=== PATIENT | female | born 1990 | race Caucasian/White ===

== ENCOUNTER 2019-11-24 13:35 | Outpatient (RCR) | payer MEDICAID, SELFPAY | END 2020-02-22 23:59 | disposition home or self-care (01) | LOC: ANHBWCAUD 13:35 | DX: Z46.1 Encounter for fitting and adjustment of hearing aid (principal) | CPT/HCPCS: 99199 ==

== ENCOUNTER 2019-12-23 10:35 | Outpatient (CLI) | payer MEDICARE, MEDICAID, SELFPAY | END 2019-12-23 10:36 | disposition home or self-care (01) | DX: Z13.5 Encounter for screening for eye and ear disorders (principal); H91.93 Unspecified hearing loss, bilateral | CPT/HCPCS: 92557; 92567 ==

== ENCOUNTER 2020-04-11 10:18 | Outpatient (RCR) | payer MEDICAID, SELFPAY | END 2020-04-11 23:59 | disposition home or self-care (01) | LOC: ANHAUDIO 10:18 | DX: Z46.1 Encounter for fitting and adjustment of hearing aid (principal) | CPT/HCPCS: V5160; V5261; V5264 ==

== ENCOUNTER 2021-07-26 08:52 | Outpatient (CLI) | payer MEDICAID, SELFPAY | END 2021-07-26 08:53 | disposition home or self-care (01) | LOC: ANHBWCAUD 08:54 | PROVIDERS: Visit Provider Family Medicine | DX: H90.3 Sensorineural hearing loss, bilateral (principal) | CPT/HCPCS: 92557; 92567 ==

== ENCOUNTER 2022-08-01 09:05 | Outpatient (CLI) | payer MEDICARE, MEDICAID, SELFPAY | END 2022-08-01 09:06 | disposition home or self-care (01) | LOC: ANHBWCAUD 09:06 | PROVIDERS: PCP Family Medicine; Visit Provider Family Medicine | DX: H91.93 Unspecified hearing loss, bilateral (principal) | CPT/HCPCS: 92557; 92567 ==

== ENCOUNTER 2023-09-16 09:21 | Outpatient (CLI) | payer MEDICARE, MEDICAID, SELFPAY | END 2023-09-16 09:22 | disposition home or self-care (01) | LOC: ANHBWCAUD 09:21 | PROVIDERS: PCP Family Medicine; Visit Provider Family Medicine | DX: H90.3 Sensorineural hearing loss, bilateral (principal) | CPT/HCPCS: 92557; 92567 ==

== ENCOUNTER 2024-12-28 08:55 | Outpatient (CLI) | payer MEDICARE, MEDICAID, SELFPAY ==
--- OUTSIDE RECORDS SUMMARY | 2024-12-28 09:29 | XMS_ITS | Encounter Summary ---
Author Organization [facility] HealthCare Address [address] [place] [address] Phone Care Team Providers Care Cat Breeder Name Role Phone Dorie Thomas MD Primary Care Provider [phone] Encounter Details Date Type Department Care Team (Late st Contact Info) Description 11/27/2022 Lab Requisition [facility] Laboratory Services 1 [place] [address] Cheko Simental MD [address] [place] [address] [facility] [address] [place] [address] Encounter for screening for COVID-19 Social History Tobacco Use Types Packs/Day Years Used Date Smoking Tobacco: Never Smokeless Tobacco: Never Comments No Sex and Gender Information Value Date Recorded Sex Assigned at Not on file Legal Sex Female 7:58 PM CDT Gender Identity Not on file Sexual Orientation Not on file documented as of this encounter Plan of Treatment Not on file documented as of this encounter Procedures Procedure Name Priority Date/Time Associated Diagnosis Comments SARS-COV-2 BY MOLECULAR Routine 11/27/2022 8:40 AM SHEET ROCK NAILER Encounter for screening for COVID-19 documented in this encounter Results * SARS-COV-2 BY MOLECULAR (11/27/2022 8:40 AM SHEET ROCK NAILER) SARSCOV2 NOT DETECTED (Referen ce Range for this test is Not Detected ) [facility] THERMOFISHER FAST DX 11/27/2022 5:12 PM SHEET ROCK NAILER [facility] Comment:This test was perfor med by a RT-PCR method. Other Non-Phlebotomy Collection / Unknown 11/27/2022 8:40 AM SHEET ROCK NAILER 11/27/2022 10:07 AM SHEET ROCK NAILER Narrative [facility] - 11/27/2022 5:12 PM SHEET ROCK NAILER Authorized Fact Sheets about this test for providers and patients are available at: https://www.fda.gov/medical-devices/hfkzxqmfl-opegedjpbb-rsxbzfj-devices/emergen cy-us e-authorizations us Cheko Simental MD MICROBIOLOGY - GENERAL ORDERAB LES Final Result [facility] [address] [place] [address], documented in this encounter Visit Diagnoses Diagnosis Encounter for screening for COVID-19 documented in this encounter Additional Health Concerns Infection Onset Date Last Indicated Resolved Time COVID - 19 10/29/2022 01/14/2023 01/24/2023 12:1 6 AM CDT documented as of this encounter Care Teams Cat Breeder Relationship Specialty Start Date End Date Dorie Thomas MD PCP - General Family Medicine 01/09/16 01/20/24 documented as of this encounter
--- OUTSIDE RECORDS SUMMARY | 2024-12-28 09:29 | XMS_ITS | Encounter Summary ---
Author Organization [facility] HealthCare Address [address] [place] [address] Phone Care Team Providers Care Loan Originator Name Role Phone Dorie Thomas MD Primary Care Provider Encounter Details Date Type Department Care Team (Late st Contact Info) Description 12/17/2022 Lab Requisition [facility] Laboratory Services 1 [place] [address] Cheko Simental MD [address] [place] [address] [facility] [address] [place] [address] Encounter for screening for COVID-19 [...] Associated Diagnosis Comments SARS-COV-2 BY MOLECULAR Routine 12/17/2022 12:38 PM CLAY STRUCTURE BUILDER AND SERVICER Encounter for screening for COVID-19 documented in this encounter Results * SARS-COV-2 BY MOLECULAR (12/17/2022 12:38 PM CLAY STRUCTURE BUILDER AND SERVICER) SARSCOV2 NOT DETECTED (Referen ce Range for this test is Not Detected ) [facility] FA[facility] 12/18/2022 12:58 PM CLAY STRUCTURE BUILDER AND SERVICER [facility] Comment:This test was perfor med by a RT-PCR method. Other Non-Phlebotomy Collection / Unknown 12/17/2022 12:38 PM CLAY STRUCTURE BUILDER AND SERVICER 12/17/2022 1:47 PM CLAY STRUCTURE BUILDER AND SERVICER Narrative [facility] - 12/18/2022 12:58 PM CLAY STRUCTURE BUILDER AND SERVICER Authorized Fact Sheets about this test for providers and patients are available at: https://www.fda.gov/medical-devices/snmiwpnrw-kuxyledaay-juuffgs-devices/emergen cy-us e-authorizations us Cheko Simental MD MICROBIOLOGY - GENERAL ORDERAB LES Final Result [facility] [address] [place] [address], documented in this encounter Visit Diagnoses Diagnosis Encounter for screening for COVID-19 documented in this encounter Additional Health Concerns Infection Onset Date Last Indicated Resolved Time COVID - 19 10/29/2022 01/14/2023 01/24/2023 12:1 6 AM CDT documented as of this encounter Care Teams Loan Originator Relationship Specialty Start Date End Date Dorie Thomas MD PCP - General Family Medicine 01/09/16 01/20/24 documented as of this encounter
--- OUTSIDE RECORDS SUMMARY | 2024-12-28 09:29 | XMS_ITS | Encounter Summary ---
Author Organization [facility] HealthCare Address [address] [place] [address] Phone Care Team Providers Care Bus Matron Name Role Phone Dorie Thomas MD Primary Care Provider Encounter Details Date Type Department Care Team (Late st Contact Info) Description 11/19/2022 Lab Requisition [facility] Laboratory Services 1 [place] [address] Cheko Simental MD [address] [place] [address] [facility] [address] [place] [address] Encounter for screening for COVID-19 [...] Associated Diagnosis Comments SARS-COV-2 BY MOLECULAR Routine 11/19/2022 8:23 AM CODING COMPLIANCE AUDITOR Encounter for screening for COVID-19 documented in this encounter Results * SARS-COV-2 BY MOLECULAR (11/19/2022 8:23 AM CODING COMPLIANCE AUDITOR) SARSCOV2 NOT DETECTED (Referen ce Range for this test is Not Detected ) [facility] THERMOFISHER FAST DX 11/19/2022 8:36 PM CODING COMPLIANCE AUDITOR [facility] Comment:This test was perfor med by a RT-PCR method. Other Non-Phlebotomy Collection / Unknown 11/19/2022 8:23 AM CODING COMPLIANCE AUDITOR 11/19/2022 9:53 AM CODING COMPLIANCE AUDITOR Narrative [facility] - 11/19/2022 8:36 PM CODING COMPLIANCE AUDITOR Authorized Fact Sheets about this test for providers and patients are available at: https://www.fda.gov/medical-devices/pibgmyird-akffszqwjt-dbtlher-devices/emergen cy-us e-authorizations us Cheko Simental MD MICROBIOLOGY - GENERAL ORDERAB LES Final Result [facility] [address] [place] [address], documented in this encounter Visit Diagnoses Diagnosis Encounter for screening for COVID-19 documented in this encounter Additional Health Concerns Infection Onset Date Last Indicated Resolved Time COVID - 19 10/29/2022 01/14/2023 01/24/2023 12:1 6 AM CDT documented as of this encounter Care Teams Bus Matron Relationship Specialty Start Date End Date Dorie Thomas MD PCP - General Family Medicine 01/09/16 01/20/24 documented as of this encounter
--- OUTSIDE RECORDS SUMMARY | 2024-12-28 09:29 | XMS_ITS | Encounter Summary ---
Author Organization [facility] HealthCare Address [address] [place] [address] Phone Care Team Providers Care Plan Consultant Name Role Phone Dorie Thomas MD Primary Care Provider Encounter Details Date Type Department Care Team (Late st Contact Info) Description 12/24/2022 Lab Requisition [facility] Laboratory Services [address] [place] [address] Cheko Simental MD [address] [place] [address] [facility] [address] [place] [address] Encounter for screening for COVID-19 [...] Associated Diagnosis Comments SARS-COV-2 BY MOLECULAR Routine 12/24/2022 8:35 AM SOLAR ENERGY INSTALLATION MANAGER Encounter for screening for COVID-19 documented in this encounter Results * SARS-COV-2 BY MOLECULAR (12/24/2022 8:35 AM SOLAR ENERGY INSTALLATION MANAGER) SARSCOV2 NOT DETECTED (Referen ce Range for this test is Not Detected ) [facility] THERMOFISHER FAST DX 12/25/2022 8:54 AM SOLAR ENERGY INSTALLATION MANAGER [facility] [place] Comment:This test was perfor med by a RT-PCR method. Other Non-Phlebotomy Collection / Unknown 12/24/2022 8:35 AM SOLAR ENERGY INSTALLATION MANAGER 12/24/2022 10:34 AM SOLAR ENERGY INSTALLATION MANAGER Narrative [facility] [place] - 12/25/2022 8:54 AM SOLAR ENERGY INSTALLATION MANAGER Authorized Fact Sheets about this test for providers and patients are available at: https://www.fda.gov/medical-devices/qvogvzfuj-bfrppsdjbx-gyxxhwu-devices/emergen cy-us e-authorizations us Cheko Simental MD MICROBIOLOGY - GENERAL ORDERAB LES Final Result [facility] [address] [place] [address], documented in this encounter Visit Diagnoses Diagnosis Encounter for screening for COVID-19 documented in this encounter Additional Health Concerns Infection Onset Date Last Indicated Resolved Time COVID - 19 10/29/2022 01/14/2023 01/24/2023 12:1 6 AM CDT documented as of this encounter Care Teams Plan Consultant Relationship Specialty Start Date End Date Dorie Thomas MD PCP - General Family Medicine 01/09/16 01/20/24 documented as of this encounter
--- OUTSIDE RECORDS SUMMARY | 2024-12-28 09:29 | XMS_ITS | Encounter Summary ---
Author Organization [facility] HealthCare Address [address] [place] [address] Phone Care Team Providers Care Call Taker Name Role Phone Dorie Thomas MD Primary Care Provider Encounter Details Date Type Department Care Team (Late st Contact Info) Description 12/10/2022 Lab Requisition [facility] Laboratory Services 1 [place] [address] Cheko Simental MD [address] [place] [address] [facility] [address] [place] [address] Encounter for screening for COVID-19 [...] Associated Diagnosis Comments SARS-COV-2 BY MOLECULAR Routine 12/10/2022 8:31 AM REHABILITATION SERVICES AIDE Encounter for screening for COVID-19 documented in this encounter Results * SARS-COV-2 BY MOLECULAR (12/10/2022 8:31 AM REHABILITATION SERVICES AIDE) SARSCOV2 NOT DETECTED (Referen ce Range for this test is Not Detected ) [facility] THERMOFISHER FAST DX 12/10/2022 11:05 PM REHABILITATION SERVICES AIDE [facility] Comment:This test was perfor med by a RT-PCR method. Other Non-Phlebotomy Collection / Unknown 12/10/2022 8:31 AM REHABILITATION SERVICES AIDE 12/10/2022 10:19 AM REHABILITATION SERVICES AIDE Narrative [facility] - 12/10/2022 11:05 PM REHABILITATION SERVICES AIDE Authorized Fact Sheets about this test for providers and patients are available at: https://www.fda.gov/medical-devices/bgswentux-hgonfpuflv-ungbfkl-devices/emergen cy-us e-authorizations us Cheko Simental MD MICROBIOLOGY - GENERAL ORDERAB LES Final Result [facility] [address] [place] [address], documented in this encounter Visit Diagnoses Diagnosis Encounter for screening for COVID-19 documented in this encounter Additional Health Concerns Infection Onset Date Last Indicated Resolved Time COVID - 19 10/29/2022 01/14/2023 01/24/2023 12:1 6 AM CDT documented as of this encounter Care Teams Call Taker Relationship Specialty Start Date End Date Dorie Thomas MD PCP - General Family Medicine 01/09/16 01/20/24 documented as of this encounter
--- OUTSIDE RECORDS SUMMARY | 2024-12-28 09:29 | XMS_ITS | Encounter Summary ---
Author Organization [facility] HealthCare Address [address] [place] [address] Phone Care Team Providers Care Structural Manager Name Role Phone Dorie Thomas MD Primary Care Provider Encounter Details Date Type Department Care Team (Late st Contact Info) Description 12/03/2022 Lab Requisition [facility] Laboratory Services 1 [place] [address] Cheko Simental MD [address] [place] [address] [facility] [address] [place] [address] Encounter for screening for COVID-19 [...] Associated Diagnosis Comments SARS-COV-2 BY MOLECULAR Routine 12/03/2022 8:24 AM PERFORATING MACHINE OPERATOR Encounter for screening for COVID-19 documented in this encounter Results * SARS-COV-2 BY MOLECULAR (12/03/2022 8:24 AM PERFORATING MACHINE OPERATOR) SARSCOV2 NOT DETECTED (Referen ce Range for this test is Not Detected ) [facility] THERMOFISHER FAST DX 12/03/2022 9:47 PM PERFORATING MACHINE OPERATOR [facility] Comment:This test was perfor med by a RT-PCR method. Other Non-Phlebotomy Collection / Unknown 12/03/2022 8:24 AM PERFORATING MACHINE OPERATOR 12/03/2022 9:51 AM PERFORATING MACHINE OPERATOR Narrative [facility] - 12/03/2022 9:47 PM PERFORATING MACHINE OPERATOR Authorized Fact Sheets about this test for providers and patients are available at: https://www.fda.gov/medical-devices/oayshhekl-ojoohiydhe-atlzngl-devices/emergen cy-us e-authorizations us Cheko Simental MD MICROBIOLOGY - GENERAL ORDERAB LES Final Result [facility] [address] [place] [address], documented in this encounter Visit Diagnoses Diagnosis Encounter for screening for COVID-19 documented in this encounter Additional Health Concerns Infection Onset Date Last Indicated Resolved Time COVID - 19 10/29/2022 01/14/2023 01/24/2023 12:1 6 AM CDT documented as of this encounter Care Teams Structural Manager Relationship Specialty Start Date End Date Dorie Thomas MD PCP - General Family Medicine 01/09/16 01/20/24 documented as of this encounter
--- OUTSIDE RECORDS SUMMARY | 2024-12-28 09:30 | XMS_ITS | Encounter Summary ---
Author Organization [facility] HealthCare Address [address] [place] [address] Phone Care Team Providers Care Manufacturing Engineer Name Role Phone Dorie Thomas MD Primary Care Provider Encounter Details Date Type Department Care Team (Late st Contact Info) Description 04/30/2022 Lab Requisition [facility] Laboratory Services 1 [place] [address] Cheko Simental MD [address] [place] [address] [facility] [address] [place] [address] Encounter for screening for COVID-19 [...] Associated Diagnosis Comments SARS-COV-2 BY MOLECULAR Routine 07/01/2022 8:30 AM CDT Encounter for screening for COVID-19 documented in this encounter Results * SARS-COV-2 BY MOLECULAR (07/01/2022 8:30 AM CDT) SARSCOV2 NOT DETECTED (Referen ce Range for this test is Not Detected ) [facility] THERMOFISHER FAST DX 04/30/2022 11:45 PM CDT [facility] Comment:This test was perfor med by a RT-PCR method. Other Non-Phlebotomy Collection / Unknown 07/01/2022 8:30 AM CDT 04/30/2022 9:21 AM CDT Narrative [facility] - 04/30/2022 11:45 PM CDT Authorized Fact Sheets about this test for providers and patients are available at: https://www.fda.gov/medical-devices/zzqryjani-ogwiqhqxll-iwqhpnb-devices/emergen cy-us e-authorizations us Cheko Simental MD MICROBIOLOGY - GENERAL ORDERAB LES Final Result [facility] [address] [place] [address], documented in this encounter Visit Diagnoses Diagnosis Encounter for screening for COVID-19 documented in this encounter Additional Health Concerns Infection Onset Date Last Indicated Resolved Time COVID - 19 07/24/2021 09/03/2022 09/13/2022 12:1 7 AM DIRECTOR OF RETAIL OPERATIONS COVID - 19 10/29/2022 01/14/2023 01/24/2023 12:1 6 AM CDT documented as of this encounter Care Teams Manufacturing Engineer Relationship Specialty Start Date End Date Dorie Thomas MD PCP - General Family Medicine 01/09/16 01/20/24 documented as of this encounter
--- OUTSIDE RECORDS SUMMARY | 2024-12-28 09:30 | XMS_ITS | Encounter Summary ---
Author Organization [facility] HealthCare Address [address] [place] [address] Phone Care Team Providers Care Real Time Analyst Name Role Phone Dorie Thomas MD Primary Care Provider [phone] Encounter Details Date Type Department Care Team (Late st Contact Info) Description 10/29/2022 Lab Requisition [facility] Laboratory Services 1 [place] [address] Cheko Simental MD [address] [place] [address] [facility] [address] [place] [address] Encounter for screening for COVID-19 [...] Associated Diagnosis Comments SARS-COV-2 BY MOLECULAR Routine 10/29/2022 8:24 AM STUDY SPECIALIST Encounter for screening for COVID-19 documented in this encounter Results * SARS-COV-2 BY MOLECULAR (10/29/2022 8:24 AM STUDY SPECIALIST) SARSCOV2 NOT DETECTED (Referen ce Range for this test is Not Detected ) [facility] THERMOFISHER FAST DX 10/30/2022 12:02 AM STUDY SPECIALIST [facility] Comment:This test was perfor med by a RT-PCR method. Other Non-Phlebotomy Collection / Unknown 10/29/2022 8:24 AM STUDY SPECIALIST 10/29/2022 2:30 PM STUDY SPECIALIST Narrative [facility] - 10/30/2022 12:02 AM STUDY SPECIALIST Authorized Fact Sheets about this test for providers and patients are available at: https://www.fda.gov/medical-devices/mmskiljjb-qnxzbmklcr-qvngcvj-devices/emergen cy-us e-authorizations us Cheko Simental MD MICROBIOLOGY - GENERAL ORDERAB LES Final Result [facility] [address] [place] [address], documented in this encounter Visit Diagnoses Diagnosis Encounter for screening for COVID-19 documented in this encounter Additional Health Concerns Infection Onset Date Last Indicated Resolved Time COVID - 19 10/29/2022 01/14/2023 01/24/2023 12:1 6 AM CDT documented as of this encounter Care Teams Real Time Analyst Relationship Specialty Start Date End Date Dorie Thomas MD PCP - General Family Medicine 01/09/16 01/20/24 documented as of this encounter
--- OUTSIDE RECORDS SUMMARY | 2024-12-28 09:30 | XMS_ITS | Encounter Summary ---
Author Organization [facility] HealthCare Address [address] [place] [address] Phone Care Team Providers Care Therapeutic Strategy Lead Name Role Phone Dorie Thomas MD Primary Care Provider Encounter Details Date Type Department Care Team (Late st Contact Info) Description 07/02/2022 Lab Requisition [facility] Laboratory Services 1 [place] [address] Cheko Simental MD [address] [place] [address] [facility] [address] [place] [address] Encounter for screening for COVID-19 [...] Associated Diagnosis Comments SARS-COV-2 BY MOLECULAR Routine 07/02/2022 8:29 AM CDT Encounter for screening for COVID-19 documented in this encounter Results * SARS-COV-2 BY MOLECULAR (07/02/2022 8:29 AM CDT) SARSCOV2 NOT DETECTED (Referen ce Range for this test is Not Detected ) [facility] THERMOFISHER FAST DX 07/03/2022 6:15 AM CDT [facility] Comment:This test was perfor med by a RT-PCR method. Other Non-Phlebotomy Collection / Unknown 07/02/2022 8:29 AM CDT 07/02/2022 11:44 AM CDT Narrative [facility] - 07/03/2022 6:15 AM CDT Authorized Fact Sheets about this test for providers and patients are available at: https://www.fda.gov/medical-devices/avtlcllaf-vrzkvvrfsr-iiquajn-devices/emergen cy-us e-authorizations us Cheko Simental MD MICROBIOLOGY - GENERAL ORDERAB LES Final Result [facility] [address] [place] [address], documented in this encounter Visit Diagnoses Diagnosis Encounter for screening for COVID-19 documented in this encounter Additional Health Concerns Infection Onset Date Last Indicated Resolved Time COVID - 19 07/24/2021 09/03/2022 09/13/2022 12:1 7 AM ART CLASS MODEL COVID - 19 10/29/2022 01/14/2023 01/24/2023 12:1 6 AM CDT documented as of this encounter Care Teams Therapeutic Strategy Lead Relationship Specialty Start Date End Date Dorie Thomas MD PCP - General Family Medicine 01/09/16 01/20/24 documented as of this encounter
--- OUTSIDE RECORDS SUMMARY | 2024-12-28 09:30 | XMS_ITS | Encounter Summary ---
Author Organization [facility] HealthCare Address [address] [place] [address] Phone Care Team Providers Care Program Attendant Name Role Phone Dorie Thomas MD Primary Care Provider [phone] Encounter Details Date Type Department Care Team (Late st Contact Info) Description 07/31/2021 Lab Requisition [facility] Laboratory Services 1 [place] [address] Cheko Simental MD [address] [place] [address] [facility] [address] [place] [address] Encounter for screening for COVID-19 [...] Associated Diagnosis Comments SARS-COV-2 BY MOLECULAR Routine 07/31/2021 8:38 AM CDT Encounter for screening for COVID-19 documented in this encounter Results * SARS-COV-2 BY MOLECULAR (07/31/2021 8:38 AM CDT) SARSCOV2 NOT DETECTED (Referen ce Range for this test is Not Detected ) [facility] THERMOFISHER FAST DX 08/01/2021 6:36 AM CDT [facility] Comment:This test was perfor med by a RT-PCR method. Other Non-Phlebotomy Collection / Unknown 07/31/2021 8:38 AM CDT 07/31/2021 10:26 AM CDT Narrative [facility] - 08/01/2021 6:36 AM CDT Authorized Fact Sheets about this test for providers and patients are available at: https://www.fda.gov/medical-devices/eyjmuvqgx-jkolfkblao-ktuaqcc-devices/emergen cy-us e-authorizations us Cheko Simental MD MICROBIOLOGY - GENERAL ORDERAB LES Final Result [facility] [address] [place] [id number], documented in this encounter Visit Diagnoses Diagnosis Encounter for screening for COVID-19 documented in this encounter Additional Health Concerns Infection Onset Date Last Indicated Resolved Time COVID - 19 07/24/2021 09/03/2022 09/13/2022 12:1 7 AM CUFF MATCHER COVID - 19 10/29/2022 01/14/2023 01/24/2023 12:1 6 AM CDT documented as of this encounter Care Teams Program Attendant Relationship Specialty Start Date End Date Dorie Thomas MD PCP - General Family Medicine 01/09/16 01/20/24 documented as of this encounter
--- OUTSIDE RECORDS SUMMARY | 2024-12-28 09:30 | XMS_ITS | Encounter Summary ---
Author Organization [facility] HealthCare Address [address] [place] [address] Phone Care Team Providers Care Sales Strategy Manager Name Role Phone Dorie Thomas MD Primary Care Provider [phone] Encounter Details Date Type Department Care Team (Late st Contact Info) Description 04/09/2022 Lab Requisition [facility] Laboratory Services 1 [place] [address] Cheko Simental MD [address] [place] [address] [facility] [address] [place] [address] Encounter for screening for COVID-19 [...] Associated Diagnosis Comments SARS-COV-2 BY MOLECULAR Routine 04/09/2022 9:06 AM CDT Encounter for screening for COVID-19 documented in this encounter Results * SARS-COV-2 BY MOLECULAR (04/09/2022 9:06 AM CDT) SARSCOV2 NOT DETECTED (Referen ce Range for this test is Not Detected ) [facility] THERMOFISHER FAST DX 04/10/2022 6:49 AM CDT [facility] Comment:This test was perfor med by a RT-PCR method. Other Non-Phlebotomy Collection / Unknown 04/09/2022 9:06 AM CDT 04/09/2022 12:45 PM CDT Narrative [facility] - 04/10/2022 6:49 AM CDT Authorized Fact Sheets about this test for providers and patients are available at: https://www.fda.gov/medical-devices/nfergzull-hbosjemlwp-ldwkewi-devices/emergen cy-us e-authorizations us Cheko Simental MD MICROBIOLOGY - GENERAL ORDERAB LES Final Result [facility] [address] [place] [address], documented in this encounter Visit Diagnoses Diagnosis Encounter for screening for COVID-19 documented in this encounter Additional Health Concerns Infection Onset Date Last Indicated Resolved Time COVID - 19 07/24/2021 09/03/2022 09/13/2022 12:1 7 AM STRUCTURAL METAL WORKER COVID - 19 10/29/2022 01/14/2023 01/24/2023 12:1 6 AM CDT documented as of this encounter Care Teams Sales Strategy Manager Relationship Specialty Start Date End Date Dorie Thomas MD PCP - General Family Medicine 01/09/16 01/20/24 documented as of this encounter
--- OUTSIDE RECORDS SUMMARY | 2024-12-28 09:30 | XMS_ITS | Encounter Summary ---
Author Organization [facility] Address [address] [place] [address] Phone Care Team Providers Care Manager Nc Name Role Phone Dorie Thomas MD Primary Care Provider [phone] Encounter Details Date Type Department Care Team (Late st Contact Info) Description 06/18/2022 Lab Requisition [facility] Services [address] [place] [address] Cheko Simental MD [address] [place] [address] [facility] [address] [place] [address] Encounter for screening for COVID-19 [...] Associated Diagnosis Comments SARS-COV-2 BY MOLECULAR Routine 06/18/2022 8:38 AM CDT Encounter for screening for COVID-19 documented in this encounter Results * SARS-COV-2 BY MOLECULAR (06/18/2022 8:38 AM CDT) SARSCOV2 NOT DETECTED (Referen ce Range for this test is Not Detected ) [facility] THERMOFISHER FAST DX 06/19/2022 8:15 AM CDT [facility] Comment:This test was perfor med by a RT-PCR method. Other Non-Phlebotomy Collection / Unknown 06/18/2022 8:38 AM CDT 06/18/2022 12:45 PM CDT Narrative [facility] - 06/19/2022 8:15 AM CDT Authorized Fact Sheets about this test for providers and patients are available at: https://www.fda.gov/medical-devices/kfcwvelul-tfjaipihwr-uatloey-devices/emergen cy-us e-authorizations us Cheko Simental MD MICROBIOLOGY - GENERAL ORDERAB LES Final Result [facility] [address] [place] [address], documented in this encounter Visit Diagnoses Diagnosis Encounter for screening for COVID-19 documented in this encounter Additional Health Concerns Infection Onset Date Last Indicated Resolved Time COVID - 19 07/24/2021 09/03/2022 09/13/2022 12:1 7 AM TREATING AND PUMPING SUPERVISOR COVID - 19 10/29/2022 01/14/2023 01/24/2023 12:1 6 AM CDT documented as of this encounter Care Teams Manager Nc Relationship Specialty Start Date End Date Dorie Thomas MD PCP - General Family Medicine 01/09/16 01/20/24 documented as of this encounter
--- OUTSIDE RECORDS SUMMARY | 2024-12-28 09:30 | XMS_ITS | Encounter Summary ---
Author Organization [facility] Address [address] [place] [address] Phone Care Team Providers Care Manager Of Business Operations Name Role Phone Dorie Thomas MD Primary Care Provider [phone] Encounter Details Date Type Department Care Team (Late st Contact Info) Description 05/21/2022 Lab Requisition [facility] Laboratory Services 1 [place] [address] Cheko Simental MD [address] [place] [address] [facility] [address] [place] [address] Encounter for screening for COVID-19 [...] Associated Diagnosis Comments SARS-COV-2 BY MOLECULAR Routine 05/21/2022 8:27 AM CDT Encounter for screening for COVID-19 documented in this encounter Results * SARS-COV-2 BY MOLECULAR (05/21/2022 8:27 AM CDT) SARSCOV2 NOT DETECTED (Referen ce Range for this test is Not Detected ) [facility] THERMOFISHER FAST DX 05/22/2022 8:14 PM CDT [facility] Comment:This test was perfor med by a RT-PCR method. Other Non-Phlebotomy Collection / Unknown 05/21/2022 8:27 AM CDT 05/21/2022 1:44 PM CDT Narrative [facility] - 05/22/2022 8:14 PM CDT Authorized Fact Sheets about this test for providers and patients are available at: https://www.fda.gov/medical-devices/btglpqtkj-orsljvnsqx-hbawcer-devices/emergen cy-us e-authorizations us Cheko Simental MD MICROBIOLOGY - GENERAL ORDERAB LES Final Result [facility] [address] [place] [address], documented in this encounter Visit Diagnoses Diagnosis Encounter for screening for COVID-19 documented in this encounter Additional Health Concerns Infection Onset Date Last Indicated Resolved Time COVID - 19 07/24/2021 09/03/2022 09/13/2022 12:1 7 AM 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
--- OUTSIDE RECORDS SUMMARY | 2024-12-28 09:30 | XMS_ITS | Encounter Summary ---
Author Organization [facility] Address [address] [place] [address] Phone Care Team Providers Care Flame Cutting Machine Operator Name Role Phone Dorie Thomas MD Primary Care Provider Encounter Details Date Type Department Care Team (Late st Contact Info) Description 03/26/2022 Lab Requisition [facility] Laboratory Services 1 [place] [address] Cheko Simental MD [address] [place] [address] [facility] [address] [place] [address] Encounter for screening for COVID-19 [...] Associated Diagnosis Comments SARS-COV-2 BY MOLECULAR Routine 03/26/2022 8:57 AM CDT Encounter for screening for COVID-19 documented in this encounter Results * SARS-COV-2 BY MOLECULAR (03/26/2022 8:57 AM CDT) SARSCOV2 NOT DETECTED (Referen ce Range for this test is Not Detected ) [facility] THERMOFISHER FAST DX 03/27/2022 12:49 AM CDT [facility] Comment:This test was perfor med by a RT-PCR method. Other Non-Phlebotomy Collection / Unknown 03/26/2022 8:57 AM CDT 03/26/2022 11:13 AM CDT Narrative [facility] - 03/27/2022 12:49 AM CDT Authorized Fact Sheets about this test for providers and patients are available at: https://www.fda.gov/medical-devices/etcftcvqe-kmhomdegfs-vjkxhvq-devices/emergen cy-us e-authorizations us Cheko Simental MD MICROBIOLOGY - GENERAL ORDERAB LES Final Result [facility] [address] [place] [address], documented in this encounter Visit Diagnoses Diagnosis Encounter for screening for COVID-19 documented in this encounter Additional Health Concerns Infection Onset Date Last Indicated Resolved Time COVID - 19 07/24/2021 09/03/2022 09/13/2022 12:1 7 AM FLOOR POLISHER COVID - 19 10/29/2022 01/14/2023 01/24/2023 12:1 6 AM CDT documented as of this encounter Care Teams Flame Cutting Machine Operator Relationship Specialty Start Date End Date Dorie Thomas MD PCP - General Family Medicine 01/09/16 01/20/24 documented as of this encounter
--- OUTSIDE RECORDS SUMMARY | 2024-12-28 09:30 | XMS_ITS | Encounter Summary ---
Author Organization [facility] Address [address] [place] [address] Phone Care Team Providers Care Brakeshoe Repairer Name Role Phone Dorie Thomas MD Primary Care Provider Encounter Details Date Type Department Care Team (Late st Contact Info) Description 09/25/2021 Lab Requisition [facility] Laboratory Services 1 [place] [address] Cheko Simental MD [address] [place] [address] [facility] [address] [place] [address] Social History Tobacco Use Types Packs/Day Years [...] Associated Diagnosis Comments SARS-COV-2 BY MOLECULAR Routine 09/25/2021 8:20 AM MECHANICAL SYSTEMS DESIGNER documented in this encounter Results * SARS-COV-2 BY MOLECULAR (09/25/2021 8:20 AM MECHANICAL SYSTEMS DESIGNER) SARSCOV2 NOT DETECTED (Referen ce Range for this test is Not Detected ) [facility] THERMOFISHER FAST DX 09/26/2021 9:30 PM MECHANICAL SYSTEMS DESIGNER [facility] Comment:This test was perfor med by a RT-PCR method. Other Non-Phlebotomy Collection / Unknown 09/25/2021 8:20 AM MECHANICAL SYSTEMS DESIGNER 09/25/2021 10:47 AM MECHANICAL SYSTEMS DESIGNER Narrative [facility] - 09/26/2021 9:30 PM MECHANICAL SYSTEMS DESIGNER Authorized Fact Sheets about this test for providers and patients are available at: https://www.fda.gov/medical-devices/rewxyabxh-qsqxtcppkj-lnvjulh-devices/emergen cy-us e-authorizations us Cheko Simental MD MICROBIOLOGY - GENERAL ORDERAB LES Final Result [facility] [address] [facility] [place] [id number], documented in this encounter Visit Diagnoses Not on filedocumented in this encounter Additional Health Concerns Infection Onset Date Last Indicated Resolved Time COVID - 19 07/24/2021 09/03/2022 09/13/2022 12:1 7 AM MECHANICAL SYSTEMS DESIGNER COVID - 19 10/29/2022 01/14/2023 01/24/2023 12:1 6 AM CDT documented as of this encounter Care Teams Brakeshoe Repairer Relationship Specialty Start Date End Date Dorie Thomas MD PCP - General Family Medicine 01/09/16 01/20/24 documented as of this encounter
--- OUTSIDE RECORDS SUMMARY | 2024-12-28 09:30 | XMS_ITS | Encounter Summary ---
Author Organization [facility] Address [address] [place] [address] Phone Care Team Providers Care Diabetes Educator Name Role Phone Dorie Thomas MD Primary Care Provider Encounter Details Date Type Department Care Team (Late st Contact Info) Description 07/23/2022 Lab Requisition [facility] Laboratory Services 1 [place] [address] Cheko Simental MD [address] [place] [address] [facility] [address] [place] [address] Encounter for screening for COVID-19 [...] Associated Diagnosis Comments SARS-COV-2 BY MOLECULAR Routine 07/23/2022 8:22 AM CDT Encounter for screening for COVID-19 documented in this encounter Results * SARS-COV-2 BY MOLECULAR (07/23/2022 8:22 AM CDT) SARSCOV2 NOT DETECTED (Referen ce Range for this test is Not Detected ) [facility] THERMOFISHER FAST DX 07/24/2022 10:23 AM CDT [facility] Comment:This test was perfor med by a RT-PCR method. Other Non-Phlebotomy Collection / Unknown 07/23/2022 8:22 AM CDT 07/23/2022 11:04 AM CDT Narrative [facility] - 07/24/2022 10:23 AM CDT Authorized Fact Sheets about this test for providers and patients are available at: https://www.fda.gov/medical-devices/mlimmvivr-ytnjxivbic-auqavmd-devices/emergen cy-us e-authorizations us Cheko Simental MD MICROBIOLOGY - GENERAL ORDERAB LES Final Result [facility] [address] [place] [address], documented in this encounter Visit Diagnoses Diagnosis Encounter for screening for COVID-19 documented in this encounter Additional Health Concerns Infection Onset Date Last Indicated Resolved Time COVID - 19 07/24/2021 09/03/2022 09/13/2022 12:1 7 AM INCOME TAX ADJUSTER COVID - 19 10/29/2022 01/14/2023 01/24/2023 12:1 6 AM CDT documented as of this encounter Care Teams Diabetes Educator Relationship Specialty Start Date End Date Dorie Thomas MD PCP - General Family Medicine 01/09/16 01/20/24 documented as of this encounter
--- OUTSIDE RECORDS SUMMARY | 2024-12-28 09:30 | XMS_ITS | Encounter Summary ---
Author Organization [facility] Address [address] [place] [address] Phone Care Team Providers Care Bath Tester Name Role Phone Dorie Thomas MD Primary Care Provider [phone] Encounter Details Date Type Department Care Team (Late st Contact Info) Description 07/16/2022 Lab Requisition [facility] Laboratory Services 1 [place] [address] Cheko Simental MD [address] [place] [address] [facility] [address] [place] [address] Encounter for screening for COVID-19 [...] Associated Diagnosis Comments SARS-COV-2 BY MOLECULAR Routine 07/16/2022 8:17 AM CDT documented in this encounter Results * SARS-COV-2 BY MOLECULAR (07/16/2022 8:17 AM CDT) SARSCOV2 NOT DETECTED (Referen ce Range for this test is Not Detected ) [facility] THERMOFISHER FAST DX 07/16/2022 10:11 PM CDT [facility] Comment:This test was perfor med by a RT-PCR method. Other Non-Phlebotomy Collection / Unknown 07/16/2022 8:17 AM CDT 07/16/2022 9:43 AM CDT Narrative [facility] - 07/16/2022 10:11 PM CDT Authorized Fact Sheets about this test for providers and patients are available at: https://www.fda.gov/medical-devices/ozdmcjaql-cyfzfytjdl-rzyivnm-devices/emergen cy-us e-authorizations us Cheko Simental MD MICROBIOLOGY - GENERAL ORDERAB LES Final Result Performing Organization Address City/State/[facility] Co de Phone Number [facility] [address] [place] [address], documented in this encounter Visit Diagnoses Diagnosis Encounter for screening for COVID-19 documented in this encounter Additional Health Concerns Infection Onset Date Last Indicated Resolved Time COVID - 19 07/24/2021 09/03/2022 09/13/2022 12:1 7 AM SUPERVISOR WEBBING COVID - 19 10/29/2022 01/14/2023 01/24/2023 12:1 6 AM CDT documented as of this encounter Care Teams Bath Tester Relationship Specialty Start Date End Date Dorie Thomas MD PCP - General Family Medicine 01/09/16 01/20/24 documented as of this encounter
--- OUTSIDE RECORDS SUMMARY | 2024-12-28 09:30 | XMS_ITS | Encounter Summary ---
Author Organization [facility] Address [address] [place] [address] Phone Care Team Providers Care Gill Box Tender Name Role Phone Dorie Thomas MD Primary Care Provider [phone] Encounter Details Date Type Department Care Team (Late st Contact Info) Description 02/05/2022 Lab Requisition [facility] Laboratory Services 1 [place] [address] Cheko Simental MD [address] [place] [address] [facility] [address] [place] [address] Encounter for screening for other viral diseases Social History Tobacco Use Types Packs/Day Years [...] Associated Diagnosis Comments SARS-COV-2 BY MOLECULAR Routine 02/05/2022 9:07 AM CDT documented in this encounter Results * SARS-COV-2 BY MOLECULAR (02/05/2022 9:07 AM CDT) SARSCOV2 NOT DETECTED (Referen ce Range for this test is Not Detected ) [facility] THERMOFISHER FAST DX 02/05/2022 11:[address] [facility] Comment:This test was perfor med by a RT-PCR method. Other No Phlebotomy Charged / Unknown 02/05/2022 9:07 AM CDT 02/05/2022 12:[address] [facility] - 02/05/2022 11:28 PM CDT Authorized Fact Sheets about this test for providers and patients are available at: https://www.fda.gov/medical-devices/lbynaghuy-gqkxgbskxb-svalfmj-devices/emergen cy-us e-authorizations us Cheko Simental MD MICROBIOLOGY - GENERAL ORDERAB LES Final Result Performing Organization Address City/State/[facility] Co de Phone Number [facility] [address] [place] [address], documented in this encounter Visit Diagnoses Diagnosis Encounter for screening for other viral diseases documented in this encounter Additional Health Concerns Infection Onset Date Last Indicated Resolved Time COVID - 19 07/24/2021 09/03/2022 09/13/2022 12:1 7 AM BOATING SAFETY OFFICER COVID - 19 10/29/2022 01/14/2023 01/24/2023 12:1 6 AM CDT documented as of this encounter Care Teams Gill Box Tender Relationship Specialty Start Date End Date Dorie Thomas MD PCP - General Family Medicine 01/09/16 01/20/24 documented as of this encounter
--- OUTSIDE RECORDS SUMMARY | 2024-12-28 09:30 | XMS_ITS | Encounter Summary ---
Author Organization [facility] Address [address] [place] [address] Phone Care Team Providers Care Investigation Manager Name Role Phone Dorie Thomas MD Primary Care Provider [phone] Encounter Details Date Type Department Care Team (Late st Contact Info) Description 11/12/2022 Lab Requisition [facility] Laboratory Services 1 [place] [address] Cheko Simental MD [address] [place] [address] [facility] [address] [place] [address] Encounter for screening for COVID-19 [...] Associated Diagnosis Comments SARS-COV-2 BY MOLECULAR Routine 11/12/2022 12:40 PM MACHINE STONE POLISHER Encounter for screening for COVID-19 documented in this encounter Results * SARS-COV-2 BY MOLECULAR (11/12/2022 12:40 PM MACHINE STONE POLISHER) SARSCOV2 NOT DETECTED (Referen ce Range for this test is Not Detected ) [facility] THERMOFISHER FAST DX 11/12/2022 11:22 PM MACHINE STONE POLISHER [facility] Comment:This test was perfor med by a RT-PCR method. Other Non-Phlebotomy Collection / Unknown 11/12/2022 12:40 PM MACHINE STONE POLISHER 11/12/2022 1:58 PM MACHINE STONE POLISHER Narrative [facility] - 11/12/2022 11:22 PM MACHINE STONE POLISHER Authorized Fact Sheets about this test for providers and patients are available at: https://www.fda.gov/medical-devices/lllsanaaz-lhfvwoggps-bufqagf-devices/emergen cy-us e-authorizations us Cheko Simental MD MICROBIOLOGY - GENERAL ORDERAB LES Final Result [facility] [address] [place] [address], documented in this encounter Visit Diagnoses Diagnosis Encounter for screening for COVID-19 documented in this encounter Additional Health Concerns Infection Onset Date Last Indicated Resolved Time COVID - 19 10/29/2022 01/14/2023 01/24/2023 12:1 6 AM CDT documented as of this encounter Care Teams Investigation Manager Relationship Specialty Start Date End Date Dorie Thomas MD PCP - General Family Medicine 01/09/16 01/20/24 documented as of this encounter
--- OUTSIDE RECORDS SUMMARY | 2024-12-28 09:30 | XMS_ITS | Encounter Summary ---
Author Organization [facility] Address [address] [place] [address] Phone Care Team Providers Care Station Manager Name Role Phone Dorie Thomas MD Primary Care Provider Encounter Details Date Type Department Care Team (Late st Contact Info) Description 04/02/2022 Lab Requisition [facility] Laboratory Services 1 [place] [address] Cheko Simental MD [address] [place] [address] [facility] [address] [place] [address] Encounter for screening for COVID-19 [...] Associated Diagnosis Comments SARS-COV-2 BY MOLECULAR Routine 04/02/2022 9:12 AM CDT Encounter for screening for COVID-19 documented in this encounter Results * SARS-COV-2 BY MOLECULAR (04/02/2022 9:12 AM CDT) SARSCOV2 NOT DETECTED (Referen ce Range for this test is Not Detected ) [facility] THERMOFISHER FAST DX 04/03/2022 8:04 AM CDT [facility] Comment:This test was perfor med by a RT-PCR method. Other Non-Phlebotomy Collection / Unknown 04/02/2022 9:12 AM CDT 04/02/2022 12:06 PM CDT Narrative [facility] - 04/03/2022 8:04 AM CDT Authorized Fact Sheets about this test for providers and patients are available at: https://www.fda.gov/medical-devices/mxthxscye-xcqitsxkck-ltcyrnb-devices/emergen cy-us e-authorizations us Cheko Simental MD MICROBIOLOGY - GENERAL ORDERAB LES Final Result [facility] [address] [place] [address], documented in this encounter Visit Diagnoses Diagnosis Encounter for screening for COVID-19 documented in this encounter Additional Health Concerns Infection Onset Date Last Indicated Resolved Time COVID - 19 07/24/2021 09/03/2022 09/13/2022 12:1 7 AM DEPARTMENT CLINICIAN COVID - 19 10/29/2022 01/14/2023 01/24/2023 12:1 6 AM CDT documented as of this encounter Care Teams Station Manager Relationship Specialty Start Date End Date Dorie Thomas MD PCP - General Family Medicine 01/09/16 01/20/24 documented as of this encounter
--- OUTSIDE RECORDS SUMMARY | 2024-12-28 09:30 | XMS_ITS | Encounter Summary ---
Author Organization [facility] Address [address] [place] [address] Phone Care Team Providers Care Coil Repair Technician Name Role Phone Dorie Thomas MD Primary Care Provider [phone] Encounter Details Date Type Department Care Team (Late st Contact Info) Description 08/28/2021 Lab Requisition [facility] Laboratory Services 1 [place] [address] Cheko Simental MD [address] [place] [address] [facility] [address] [place] [address] Encounter for screening for COVID-19 [...] Associated Diagnosis Comments SARS-COV-2 BY MOLECULAR Routine 08/28/2021 8:41 AM CDT Encounter for screening for COVID-19 documented in this encounter Results * SARS-COV-2 BY MOLECULAR (08/28/2021 8:41 AM CDT) SARSCOV2 NOT DETECTED (Referen ce Range for this test is Not Detected ) [facility] THERMOFISHER FAST DX 08/29/2021 7:12 AM CDT [facility] Comment:This test was perfor med by a RT-PCR method. Other Non-Phlebotomy Collection / Unknown 08/28/2021 8:41 AM CDT 08/28/2021 11:58 AM CDT Narrative [facility] - 08/29/2021 7:12 AM CDT Authorized Fact Sheets about this test for providers and patients are available at: https://www.fda.gov/medical-devices/bsdbfkrch-zjltkpckgy-wobhsug-devices/emergen cy-us e-authorizations us Cheko Simental MD MICROBIOLOGY - GENERAL ORDERAB LES Final Result [facility] [address] [place] [id number], documented in this encounter Visit Diagnoses Diagnosis Encounter for screening for COVID-19 documented in this encounter Additional Health Concerns Infection Onset Date Last Indicated Resolved Time COVID - 19 07/24/2021 09/03/2022 09/13/2022 12:1 7 AM CAR RACER COVID - 19 10/29/2022 01/14/2023 01/24/2023 12:1 6 AM CDT documented as of this encounter Care Teams Coil Repair Technician Relationship Specialty Start Date End Date Dorie Thomas MD PCP - General Family Medicine 01/09/16 01/20/24 documented as of this encounter
--- OUTSIDE RECORDS SUMMARY | 2024-12-28 09:30 | XMS_ITS | Encounter Summary ---
Author Organization [facility] Address [address] [place] [address] Phone Care Team Providers Care Retail District Manager Name Role Phone Dorie Thomas MD Primary Care Provider Encounter Details Date Type Department Care Team (Late st Contact Info) Description 05/14/2022 Lab Requisition [facility] Laboratory Services 1 [place] [address] Cheko Simental MD [address] [place] [address] [facility] [address] [place] [address] Encounter for screening for COVID-19 [...] Associated Diagnosis Comments SARS-COV-2 BY MOLECULAR Routine 05/14/2022 8:14 AM CDT Encounter for screening for COVID-19 documented in this encounter Results * SARS-COV-2 BY MOLECULAR (05/14/2022 8:14 AM CDT) SARSCOV2 NOT DETECTED (Referen ce Range for this test is Not Detected ) [facility] THERMOFISHER FAST DX 05/15/2022 10:49 AM CDT [facility] Comment:This test was perfor med by a RT-PCR method. Other Non-Phlebotomy Collection / Unknown 05/14/2022 8:14 AM CDT 05/14/2022 9:46 AM CDT Narrative [facility] - 05/15/2022 10:49 AM CDT Authorized Fact Sheets about this test for providers and patients are available at: https://www.fda.gov/medical-devices/bixftborl-aeumbbsgqo-syoybvw-devices/emergen cy-us e-authorizations us Cheko Simental MD MICROBIOLOGY - GENERAL ORDERAB LES Final Result [facility] [address] [place] [address], documented in this encounter Visit Diagnoses Diagnosis Encounter for screening for COVID-19 documented in this encounter Additional Health Concerns Infection Onset Date Last Indicated Resolved Time COVID - 19 07/24/2021 09/03/2022 09/13/2022 12:1 7 AM CHILLER TECHNICIAN COVID - 19 10/29/2022 01/14/2023 01/24/2023 12:1 6 AM CDT documented as of this encounter Care Teams Retail District Manager Relationship Specialty Start Date End Date Dorie Thomas MD PCP - General Family Medicine 01/09/16 01/20/24 documented as of this encounter
--- OUTSIDE RECORDS SUMMARY | 2024-12-28 09:30 | XMS_ITS | Encounter Summary ---
Author Organization [facility] Address [address] [place] [address] Phone Care Team Providers Care Cloth Finishing Range Operator Name Role Phone Dorie Thomas MD Primary Care Provider Encounter Details Date Type Department Care Team (Late st Contact Info) Description 05/07/2022 Lab Requisition [facility] Laboratory Services 1 [place] [address] Cheko Simental MD [address] [place] [address] [facility] [address] [place] [address] Encounter for screening for COVID-19 [...] Associated Diagnosis Comments SARS-COV-2 BY MOLECULAR Routine 05/07/2022 8:25 AM CDT Encounter for screening for COVID-19 documented in this encounter Results * SARS-COV-2 BY MOLECULAR (05/07/2022 8:25 AM CDT) SARSCOV2 NOT DETECTED (Referen ce Range for this test is Not Detected ) [facility] THERMOFISHER FAST DX 05/08/2022 5:59 AM CDT [facility] Comment:This test was perfor med by a RT-PCR method. Other Non-Phlebotomy Collection / Unknown 05/07/2022 8:25 AM CDT 05/07/2022 11:06 AM CDT Narrative [facility] - 05/08/2022 5:59 AM CDT Authorized Fact Sheets about this test for providers and patients are available at: https://www.fda.gov/medical-devices/rjfgnixbv-mrxvzqepel-glnbiej-devices/emergen cy-us e-authorizations us Cheko Simental MD MICROBIOLOGY - GENERAL ORDERAB LES Final Result [facility] [address] [place] [address], documented in this encounter Visit Diagnoses Diagnosis Encounter for screening for COVID-19 documented in this encounter Additional Health Concerns Infection Onset Date Last Indicated Resolved Time COVID - 19 07/24/2021 09/03/2022 09/13/2022 12:1 7 AM EAR SPECIALIST COVID - 19 10/29/2022 01/14/2023 01/24/2023 12:1 6 AM CDT documented as of this encounter Care Teams Cloth Finishing Range Operator Relationship Specialty Start Date End Date Dorie Thomas MD PCP - General Family Medicine 01/09/16 01/20/24 documented as of this encounter
--- OUTSIDE RECORDS SUMMARY | 2024-12-28 09:30 | XMS_ITS | Encounter Summary ---
Author Organization [facility] Address [address] [place] [address] Phone Care Team Providers Care Training Coordinator Name Role Phone Dorie Thomas MD Primary Care Provider [phone] Encounter Details Date Type Department Care Team (Late st Contact Info) Description 08/20/[address] [facility] Laboratory Services 1 [place] [address] Cheko Simental MD [address] [place] [address] [facility] [address] [place] [address] Encounter for screening for COVID-19 [...] Associated Diagnosis Comments SARS-COV-2 BY MOLECULAR Routine 08/20/2022 10:08 AM CDT Encounter for screening for COVID-19 documented in this encounter Results * SARS-COV-2 BY MOLECULAR (08/20/2022 10:08 AM CDT) SARSCOV2 NOT DETECTED (Referen ce Range for this test is Not Detected ) [facility] THERMOFISHER FAST DX 08/20/2022 11:59 PM CDT [facility] Comment:This test was perfor med by a RT-PCR method. Other Non-Phlebotomy Collection / Unknown 08/20/2022 10:08 AM CDT 08/20/2022 11:20 AM CDT Narrative [facility] - 08/20/2022 11:59 PM CDT Authorized Fact Sheets about this test for providers and patients are available at: https://www.fda.gov/medical-devices/sbyqtvdgl-zglrqzcwhn-mhhziyu-devices/emergen cy-us e-authorizations us Cheko Simental MD MICROBIOLOGY - GENERAL ORDERAB LES Final Result [facility] [address] [place] [id number], documented in this encounter Visit Diagnoses Diagnosis Encounter for screening for COVID-19 documented in this encounter Additional Health Concerns Infection Onset Date Last Indicated Resolved Time COVID - 19 07/24/2021 09/03/2022 09/13/2022 12:1 7 AM BOTTLER COVID - 19 10/29/2022 01/14/2023 01/24/2023 12:1 6 AM CDT documented as of this encounter Care Teams Training Coordinator Relationship Specialty Start Date End Date Dorie Thomas MD PCP - General Family Medicine 01/09/16 01/20/24 documented as of this encounter
--- OUTSIDE RECORDS SUMMARY | 2024-12-28 09:30 | XMS_ITS | Encounter Summary ---
Author Organization [facility] Address [address] [place] [address] Phone Care Team Providers Care Supervisor Of Officials Name Role Phone Dorie Thomas MD Primary Care Provider Encounter Details Date Type Department Care Team (Late st Contact Info) Description 08/21/2021 Lab Requisition [facility] Laboratory Services 1 [place] [address] Cheko Simental MD [address] [place] [address] [facility] [address] [place] [address] Encounter for screening for COVID-19 [...] Associated Diagnosis Comments SARS-COV-2 BY MOLECULAR Routine 08/21/2021 9:01 AM CDT Encounter for screening for COVID-19 documented in this encounter Results * SARS-COV-2 BY MOLECULAR (08/21/2021 9:01 AM CDT) SARSCOV2 NOT DETECTED (Referen ce Range for this test is Not Detected ) [facility] THERMOFISHER FAST DX 08/21/2021 5:44 PM CDT [facility] Comment:This test was perfor med by a RT-PCR method. Other Non-Phlebotomy Collection / Unknown 08/21/2021 9:01 AM CDT 08/21/2021 10:55 AM CDT Narrative [facility] - 08/21/2021 5:44 PM CDT Authorized Fact Sheets about this test for providers and patients are available at: https://www.fda.gov/medical-devices/aqkqqkrsh-kzupaevtta-hzptkot-devices/emergen cy-us e-authorizations us Cheko Simental MD MICROBIOLOGY - GENERAL ORDERAB LES Final Result [facility] [address] [place] [address], documented in this encounter Visit Diagnoses Diagnosis Encounter for screening for COVID-19 documented in this encounter Additional Health Concerns Infection Onset Date Last Indicated Resolved Time COVID - 19 07/24/2021 09/03/2022 09/13/2022 12:1 7 AM LEGAL SUPPORT SPECIALIST COVID - 19 10/29/2022 01/14/2023 01/24/2023 12:1 6 AM CDT documented as of this encounter Care Teams Supervisor Of Officials Relationship Specialty Start Date End Date Dorie Thomas MD PCP - General Family Medicine 01/09/16 01/20/24 documented as of this encounter
--- OUTSIDE RECORDS SUMMARY | 2024-12-28 09:30 | XMS_ITS | Encounter Summary ---
Author Organization [facility] Address [address] [place] [address] Phone Care Team Providers Care Metal Bed Assembler Name Role Phone Dorie Thomas MD Primary Care Provider [phone] Encounter Details Date Type Department Care Team (Late st Contact Info) Description 09/11/[address] [facility] Laboratory Services 1 [place] [id number] Cheko Simental MD [address] [place] [address] [facility] [address] [place], [place] [id number] Encounter for screening for COVID-19 Social History [...] Associated Diagnosis Comments SARS-COV-2 BY MOLECULAR Routine 09/11/2021 8:47 AM INDUSTRIAL SAFETY ENGINEER Encounter for screening for COVID-19 documented in this encounter Results * SARS-COV-2 BY MOLECULAR (09/11/2021 8:47 AM INDUSTRIAL SAFETY ENGINEER) SARSCOV2 NOT DETECTED (Referen ce Range for this test is Not Detected ) [facility] THERMOFISHER FAST DX 09/12/2021 1:33 PM INDUSTRIAL SAFETY ENGINEER [facility] Comment:This test was perfor med by a RT-PCR method. Other No Phlebotomy Charged / Unknown 09/11/2021 8:47 AM INDUSTRIAL SAFETY ENGINEER 09/11/2021 10:45 AM INDUSTRIAL SAFETY ENGINEER Narrative [facility] - 09/12/2021 1:33 PM INDUSTRIAL SAFETY ENGINEER Authorized Fact Sheets about this test for providers and patients are available at: https://www.fda.gov/medical-devices/skxduckdu-cedlersuiv-acmippe-devices/emergen cy-us e-authorizations us Cheko Simental MD MICROBIOLOGY - GENERAL ORDERAB LES Final Result Performing Organization Address City/State/[facility] Co de Phone Number [facility] [address] [place] [address], documented in this encounter Visit Diagnoses Diagnosis Encounter for screening for COVID-19 documented in this encounter Additional Health Concerns Infection Onset Date Last Indicated Resolved Time COVID - 19 07/24/2021 09/03/2022 09/13/2022 12:1 7 AM INDUSTRIAL SAFETY ENGINEER COVID - 19 10/29/2022 01/14/2023 01/24/2023 12:1 6 AM CDT documented as of this encounter Care Teams Metal Bed Assembler Relationship Specialty Start Date End Date Dorie Thomas MD PCP - General Family Medicine 01/09/16 01/20/24 documented as of this encounter
--- OUTSIDE RECORDS SUMMARY | 2024-12-28 09:30 | XMS_ITS | Encounter Summary ---
Author Organization [facility] Address [address] [place] [address] Phone Care Team Providers Care Credit Negotiator Name Role Phone Dorie Thomas MD Primary Care Provider Encounter Details Date Type Department Care Team (Late st Contact Info) Description 08/27/2022 Lab Requisition [facility] Laboratory Services 1 [place] [address] Cheko Simental MD [address] [place] [address] [facility] [address] [place] [address] Encounter for screening for COVID-19 [...] Associated Diagnosis Comments SARS-COV-2 BY MOLECULAR Routine 08/27/2022 9:35 AM CDT Encounter for screening for COVID-19 documented in this encounter Results * SARS-COV-2 BY MOLECULAR (08/27/2022 9:35 AM CDT) SARSCOV2 NOT DETECTED (Referen ce Range for this test is Not Detected ) [facility] THERMOFISHER FAST DX 08/28/2022 9:53 AM CDT [facility] Comment:This test was perfor med by a RT-PCR method. Other Non-Phlebotomy Collection / Unknown 08/27/2022 9:35 AM CDT 08/27/2022 10:48 AM CDT Narrative [facility] - 08/28/2022 9:53 AM CDT Authorized Fact Sheets about this test for providers and patients are available at: https://www.fda.gov/medical-devices/jdhbeuchz-fnsyszztpi-cjzzbqx-devices/emergen cy-us e-authorizations us Cheko Simental MD MICROBIOLOGY - GENERAL ORDERAB LES Final Result [facility] [address] [place] [address], documented in this encounter Visit Diagnoses Diagnosis Encounter for screening for COVID-19 documented in this encounter Additional Health Concerns Infection Onset Date Last Indicated Resolved Time COVID - 19 07/24/2021 09/03/2022 09/13/2022 12:1 7 AM EXTRUSION FORMER COVID - 19 10/29/2022 01/14/2023 01/24/2023 12:1 6 AM CDT documented as of this encounter Care Teams Credit Negotiator Relationship Specialty Start Date End Date Dorie Thomas MD PCP - General Family Medicine 01/09/16 01/20/24 documented as of this encounter
--- OUTSIDE RECORDS SUMMARY | 2024-12-28 09:30 | XMS_ITS | Encounter Summary ---
Author Organization [facility] Address [address] [place] [address] Phone Care Team Providers Care Superintendent Landfill Operations Name Role Phone Dorie Thomas MD Primary Care Provider [phone] Encounter Details Date Type Department Care Team (Late st Contact Info) Description 08/06/[address] [facility] Laboratory Services 1 [place] [address] Cheko Simental MD [address] [place] [address] [facility] [address] [place] [address] Encounter for screening for COVID-19 [...] Associated Diagnosis Comments SARS-COV-2 BY MOLECULAR Routine 08/06/2022 8:29 AM CDT Encounter for screening for COVID-19 documented in this encounter Results * SARS-COV-2 BY MOLECULAR (08/06/2022 8:29 AM CDT) SARSCOV2 NOT DETECTED (Referen ce Range for this test is Not Detected ) [facility] THERMOFISHER FAST DX 08/07/2022 12:28 AM CDT [facility] Comment:This test was perfor med by a RT-PCR method. Other No Phlebotomy Charged / Unknown 08/06/2022 8:29 AM CDT 08/06/2022 11:22 AM CDT Narrative [facility] - 08/07/2022 12:28 AM CDT Authorized Fact Sheets about this test for providers and patients are available at: https://www.fda.gov/medical-devices/dmbyjulgm-oynznkxxbg-hdsbslf-devices/emergen cy-us e-authorizations us Cheko Simental MD MICROBIOLOGY - GENERAL ORDERAB LES Final Result [facility] [address] [place] [address], documented in this encounter Visit Diagnoses Diagnosis Encounter for screening for COVID-19 documented in this encounter Additional Health Concerns Infection Onset Date Last Indicated Resolved Time COVID - 19 07/24/2021 09/03/2022 09/13/2022 12:1 7 AM GLOBAL REGULATORY LEAD COVID - 19 10/29/2022 01/14/2023 01/24/2023 12:1 6 AM CDT documented as of this encounter Care Teams Superintendent Landfill Operations Relationship Specialty Start Date End Date Dorie Thomas MD PCP - General Family Medicine 01/09/16 01/20/24 documented as of this encounter
--- OUTSIDE RECORDS SUMMARY | 2024-12-28 09:30 | XMS_ITS | Encounter Summary ---
Author Organization [facility] Address [address] [place] [address] Phone Care Team Providers Care Extension Clerk Name Role Phone Dorie Thomas MD Primary Care Provider Encounter Details Date Type Department Care Team (Late st Contact Info) Description 09/03/2022 Lab Requisition [facility] Laboratory Services 1 [place] [address] Cheko Simental MD [address] [place] [address] [facility] [address] [place] [address] Encounter for screening for COVID-19 [...] Associated Diagnosis Comments SARS-COV-2 BY MOLECULAR Routine 09/03/2022 8:36 AM CDT Encounter for screening for COVID-19 documented in this encounter Results * SARS-COV-2 BY MOLECULAR (09/03/2022 8:36 AM CDT) SARSCOV2 NOT DETECTED (Referen ce Range for this test is Not Detected ) [facility] THERMOFISHER FAST DX 09/04/2022 12:01 AM CDT [facility] Comment:This test was perfor med by a RT-PCR method. Other Non-Phlebotomy Collection / Unknown 09/03/2022 8:36 AM CDT 09/03/2022 12:52 PM CDT Narrative [facility] - 09/04/2022 12:01 AM CDT Authorized Fact Sheets about this test for providers and patients are available at: https://www.fda.gov/medical-devices/wmwhmkjsf-tuzwqzywzg-reqkewo-devices/emergen cy-us e-authorizations us Cheko Simental MD MICROBIOLOGY - GENERAL ORDERAB LES Final Result [facility] [address] [place] [address], documented in this encounter Visit Diagnoses Diagnosis Encounter for screening for COVID-19 documented in this encounter Additional Health Concerns Infection Onset Date Last Indicated Resolved Time COVID - 19 07/24/2021 09/03/2022 09/13/2022 12:1 7 AM GREEN CHAIN PULLER COVID - 19 10/29/2022 01/14/2023 01/24/2023 12:1 6 AM CDT documented as of this encounter Care Teams Extension Clerk Relationship Specialty Start Date End Date Dorie Thomas MD PCP - General Family Medicine 01/09/16 01/20/24 documented as of this encounter
--- OUTSIDE RECORDS SUMMARY | 2024-12-28 09:30 | XMS_ITS | Encounter Summary ---
Author Organization [facility] Address [address] [place] [address] Phone Care Team Providers Care Sweeper Driver Name Role Phone Dorie Thomas MD Primary Care Provider [phone] Encounter Details Date Type Department Care Team (Late st Contact Info) Description 06/04/2022 Lab Requisition [facility] Laboratory Services 1 [place] [address] Cheko Simental MD [address] [place] [address] [facility] [address] [place] [address] Encounter for screening for COVID-19 [...] Associated Diagnosis Comments SARS-COV-2 BY MOLECULAR Routine 06/04/2022 9:37 AM CDT Encounter for screening for COVID-19 documented in this encounter Results * SARS-COV-2 BY MOLECULAR (06/04/2022 9:37 AM CDT) SARSCOV2 NOT DETECTED (Referen ce Range for this test is Not Detected ) [facility] THERMOFISHER FAST DX 06/05/2022 1:01 PM CDT [facility] Comment:This test was perfor med by a RT-PCR method. Other Non-Phlebotomy Collection / Unknown 06/04/2022 9:37 AM CDT 06/04/2022 12:50 PM CDT Narrative [facility] - 06/05/2022 1:01 PM CDT Authorized Fact Sheets about this test for providers and patients are available at: https://www.fda.gov/medical-devices/mslvmwenq-bdersnzsqq-xsdbrnq-devices/emergen cy-us e-authorizations us Cheko Simental MD MICROBIOLOGY - GENERAL ORDERAB LES Final Result [facility] [address] [place] [address], documented in this encounter Visit Diagnoses Diagnosis Encounter for screening for COVID-19 documented in this encounter Additional Health Concerns Infection Onset Date Last Indicated Resolved Time COVID - 19 07/24/2021 09/03/2022 09/13/2022 12:1 7 AM NURSE ORTHOPAEDIC COVID - 19 10/29/2022 01/14/2023 01/24/2023 12:1 6 AM CDT documented as of this encounter Care Teams Sweeper Driver Relationship Specialty Start Date End Date Dorie Thomas MD PCP - General Family Medicine 01/09/16 01/20/24 documented as of this encounter
--- OUTSIDE RECORDS SUMMARY | 2024-12-28 09:30 | XMS_ITS | Encounter Summary ---
Author Organization [facility] Address [address] [place] [address] Phone Care Team Providers Care Property Management Assistant Name Role Phone Dorie Thomas MD Primary Care Provider Encounter Details Date Type Department Care Team (Late st Contact Info) Description 06/25/2022 Lab Requisition [facility] Laboratory Services 1 [place] [address] Cheko Simental MD [address] [place] [address] [facility] [address] [place] [address] Encounter for screening for COVID-19 [...] Associated Diagnosis Comments SARS-COV-2 BY MOLECULAR Routine 06/25/2022 7:58 AM CDT Encounter for screening for COVID-19 documented in this encounter Results * SARS-COV-2 BY MOLECULAR (06/25/2022 7:58 AM CDT) SARSCOV2 NOT DETECTED (Referen ce Range for this test is Not Detected ) [facility] THERMOFISHER FAST DX 06/26/2022 8:46 AM CDT [facility] Comment:This test was perfor med by a RT-PCR method. Other Non-Phlebotomy Collection / Unknown 06/25/2022 7:58 AM CDT 06/25/2022 11:47 AM CDT Narrative [facility] - 06/26/2022 8:46 AM CDT Authorized Fact Sheets about this test for providers and patients are available at: https://www.fda.gov/medical-devices/ihcmswfhf-gpbjfpohzg-dareqaq-devices/emergen cy-us e-authorizations us Cheko Simental MD MICROBIOLOGY - GENERAL ORDERAB LES Final Result [facility] [address] [place] [address], documented in this encounter Visit Diagnoses Diagnosis Encounter for screening for COVID-19 documented in this encounter Additional Health Concerns Infection Onset Date Last Indicated Resolved Time COVID - 19 07/24/2021 09/03/2022 09/13/2022 12:1 7 AM SEWING MACHINE ADJUSTER COVID - 19 10/29/2022 01/14/2023 01/24/2023 12:1 6 AM CDT documented as of this encounter Care Teams Property Management Assistant Relationship Specialty Start Date End Date Dorie Thomas MD PCP - General Family Medicine 01/09/16 01/20/24 documented as of this encounter
--- OUTSIDE RECORDS SUMMARY | 2024-12-28 09:30 | XMS_ITS | Encounter Summary ---
Author Organization [facility] Address [address] [place] [address] Phone Care Team Providers Care Oceanography Teacher Name Role Phone Dorie Thomas MD Primary Care Provider Encounter Details Date Type Department Care Team (Late st Contact Info) Description 07/09/2022 Lab Requisition [facility] Laboratory Services 1 [place] [address] Cheko Simental MD [address] [place] [address] [facility] [address] [place] [address] Encounter for screening for COVID-19 [...] Associated Diagnosis Comments SARS-COV-2 BY MOLECULAR Routine 07/09/2022 8:09 AM CDT Encounter for screening for COVID-19 documented in this encounter Results * SARS-COV-2 BY MOLECULAR (07/09/2022 8:09 AM CDT) SARSCOV2 NOT DETECTED (Referen ce Range for this test is Not Detected ) [facility] THERMOFISHER FAST DX 07/10/2022 8:21 AM CDT [facility] Comment:This test was perfor med by a RT-PCR method. Other COVID 19 Home Health/ Care Home Facility Collection / Unknown 07/09/2022 8:09 AM CDT 07/09/2022 1:27 PM CDT Narrative [facility] - 07/10/2022 8:21 AM CDT Authorized Fact Sheets about this test for providers and patients are available at: https://www.fda.gov/medical-devices/aaazljwvd-fcbiqnswwj-wlghlnc-devices/emergen cy-us e-authorizations us Cheko Simental MD MICROBIOLOGY - GENERAL ORDERAB LES Final Result Performing Organization Address City/State/[facility] Co de Phone Number [facility] [address] [place] [address], documented in this encounter Visit Diagnoses Diagnosis Encounter for screening for COVID-19 documented in this encounter Additional Health Concerns Infection Onset Date Last Indicated Resolved Time COVID - 19 07/24/2021 09/03/2022 09/13/2022 12:1 7 AM GARMENT MANUFACTURING SUPERVISOR COVID - 19 10/29/2022 01/14/2023 01/24/2023 12:1 6 AM CDT documented as of this encounter Care Teams Oceanography Teacher Relationship Specialty Start Date End Date Dorie Thomas MD PCP - General Family Medicine 01/09/16 01/20/24 documented as of this encounter
--- OUTSIDE RECORDS SUMMARY | 2024-12-28 09:30 | XMS_ITS | Encounter Summary ---
Author Organization [facility] Health[facility] Address [address] [place] [address] Phone Care Team Providers Care Plating And Point Assembly Supervisor Name Role Phone Dorie Thomas MD Primary Care Provider [phone] Encounter Details Date Type Department Care Team (Late st Contact Info) Description 07/30/2022 Lab Requisition [facility] Laboratory Services 1 [place] [address] Cheko Simental MD [address] [place] [address] [facility] [address] [place] [address] Encounter for screening for COVID-19 [...] Associated Diagnosis Comments SARS-COV-2 BY MOLECULAR Routine 07/30/2022 10:05 AM CDT Encounter for screening for COVID-19 documented in this encounter Results * SARS-COV-2 BY MOLECULAR (07/30/2022 10:05 AM CDT) SARSCOV2 NOT DETECTED (Referen ce Range for this test is Not Detected ) [facility] THERMOFISHER FAST DX 07/31/2022 12:09 AM CDT [facility] Comment:This test was perfor med by a RT-PCR method. Other Non-Phlebotomy Collection / Unknown 07/30/2022 10:05 AM CDT 07/30/2022 11:58 AM CDT Narrative [facility] - 07/31/2022 12:09 AM CDT Authorized Fact Sheets about this test for providers and patients are available at: https://www.fda.gov/medical-devices/wcextqcia-psdtfqlxcn-cnchxuk-devices/emergen cy-us e-authorizations us Cheko Simental MD MICROBIOLOGY - GENERAL ORDERAB LES Final Result [facility] [address] [place] [address], documented in this encounter Visit Diagnoses Diagnosis Encounter for screening for COVID-19 documented in this encounter Additional Health Concerns Infection Onset Date Last Indicated Resolved Time COVID - 19 07/24/2021 09/03/2022 09/13/2022 12:1 7 AM MANAGER DEPARTMENT COVID - 19 10/29/2022 01/14/2023 01/24/2023 12:1 6 AM CDT documented as of this encounter Care Teams Plating And Point Assembly Supervisor Relationship Specialty Start Date End Date Dorie Thomas MD PCP - General Family Medicine 01/09/16 01/20/24 documented as of this encounter
--- OUTSIDE RECORDS SUMMARY | 2024-12-28 09:30 | XMS_ITS | Encounter Summary ---
Author Organization [facility] HealthCare Address [address] [place] [address] Phone Care Team Providers Care Chick Sexer Name Role Phone Dorie Thomas MD Primary Care Provider Encounter Details Date Type Department Care Team (Late st Contact Info) Description 05/28/2022 Lab Requisition [facility] Laboratory Services [address] [place] [address] Cheko Simental MD [address] [place] [address] [facility] [address] [place] [address] Encounter for screening for COVID-19 [...] Associated Diagnosis Comments SARS-COV-2 BY MOLECULAR Routine 05/28/2022 8:34 AM CDT Encounter for screening for COVID-19 documented in this encounter Results * SARS-COV-2 BY MOLECULAR (05/28/2022 8:34 AM CDT) SARSCOV2 NOT DETECTED (Referen ce Range for this test is Not Detected ) [facility] THERMOFISHER FAST DX 05/29/2022 12:23 AM CDT [facility] Comment:This test was perfor med by a RT-PCR method. Other Non-Phlebotomy Collection / Unknown 05/28/2022 8:34 AM CDT 05/28/2022 11:41 AM CDT Narrative [facility] - 05/29/2022 12:23 AM CDT Authorized Fact Sheets about this test for providers and patients are available at: https://www.fda.gov/medical-devices/zndtdtlea-kucbjsjsow-zhyozuo-devices/emergen cy-us e-authorizations us Cheko Simental MD MICROBIOLOGY - GENERAL ORDERAB LES Final Result [facility] [address] [place] [address], documented in this encounter Visit Diagnoses Diagnosis Encounter for screening for COVID-19 documented in this encounter Additional Health Concerns Infection Onset Date Last Indicated Resolved Time COVID - 19 07/24/2021 09/03/2022 09/13/2022 12:1 7 AM MRI TECH COVID - 19 10/29/2022 01/14/2023 01/24/2023 12:1 6 AM CDT documented as of this encounter Care Teams Chick Sexer Relationship Specialty Start Date End Date Dorie Thomas MD PCP - General Family Medicine 01/09/16 01/20/24 documented as of this encounter
--- OUTSIDE RECORDS SUMMARY | 2024-12-28 09:30 | XMS_ITS | Encounter Summary ---
Author Organization [facility] HealthCare Address [address] [place] [address] Phone Care Team Providers Care Policy Change Clerk Name Role Phone Dorie Thomas MD Primary Care Provider Encounter Details Date Type Department Care Team (Late st Contact Info) Description 04/16/[address] [facility] Laboratory Services 1 [place] [address] Cheko Simental MD [address] [place] [address] [facility] [address] [place] [address] Encounter for screening for COVID-19 [...] Associated Diagnosis Comments SARS-COV-2 BY MOLECULAR Routine 04/16/2022 8:42 AM CDT Encounter for screening for COVID-19 documented in this encounter Results * SARS-COV-2 BY MOLECULAR (04/16/2022 8:42 AM CDT) SARSCOV2 NOT DETECTED (Referen ce Range for this test is Not Detected ) [facility] THERMOFISHER FAST DX 04/17/2022 8:31 AM CDT [facility] Comment:This test was perfor med by a RT-PCR method. Other Non-Phlebotomy Collection / Unknown 04/16/2022 8:42 AM CDT 04/16/2022 9:29 AM CDT Narrative [facility] - 04/17/2022 8:31 AM CDT Authorized Fact Sheets about this test for providers and patients are available at: https://www.fda.gov/medical-devices/sfvqfjkmv-nwxmcfcyia-zapmblv-devices/emergen cy-us e-authorizations us Cheko Simental MD MICROBIOLOGY - GENERAL ORDERAB LES Final Result [facility] [address] [place] [address], documented in this encounter Visit Diagnoses Diagnosis Encounter for screening for COVID-19 documented in this encounter Additional Health Concerns Infection Onset Date Last Indicated Resolved Time COVID - 19 07/24/2021 09/03/2022 09/13/2022 12:1 7 AM TIRE SHOP MANAGER COVID - 19 10/29/2022 01/14/2023 01/24/2023 12:1 6 AM CDT documented as of this encounter Care Teams Policy Change Clerk Relationship Specialty Start Date End Date Dorie Thomas MD PCP - General Family Medicine 01/09/16 01/20/24 documented as of this encounter
--- OUTSIDE RECORDS SUMMARY | 2024-12-28 09:30 | XMS_ITS | Encounter Summary ---
Author Organization [facility] HealthCare Address [address] [place] [address] Phone Care Team Providers Care Mortgage Coordinator Name Role Phone Dorie Thomas MD Primary Care Provider Encounter Details Date Type Department Care Team (Late st Contact Info) Description 11/05/2022 Lab Requisition [facility] Laboratory Services 1 [place] [address] Cheko Simental MD [address] [place] [address] [facility] [address] [place] [address] Encounter for screening for COVID-19 [...] Associated Diagnosis Comments SARS-COV-2 BY MOLECULAR Routine 11/05/2022 12:10 PM ANIMAL TREATMENT INVESTIGATOR Encounter for screening for COVID-19 documented in this encounter Results * SARS-COV-2 BY MOLECULAR (11/05/2022 12:10 PM ANIMAL TREATMENT INVESTIGATOR) SARSCOV2 NOT DETECTED (Referen ce Range for this test is Not Detected ) [facility] THERMOFISHER FAST DX 11/05/2022 11:38 PM ANIMAL TREATMENT INVESTIGATOR [facility] Comment:This test was perfor med by a RT-PCR method. Other No Phlebotomy Charged / Unknown 11/05/2022 12:10 PM ANIMAL TREATMENT INVESTIGATOR 11/05/2022 1:38 PM ANIMAL TREATMENT INVESTIGATOR Narrative [facility] - 11/05/2022 11:38 PM ANIMAL TREATMENT INVESTIGATOR Authorized Fact Sheets about this test for providers and patients are available at: https://www.fda.gov/medical-devices/czswvidtq-czpsyflqja-jsztskr-devices/emergen cy-us e-authorizations us Cheko Simental MD MICROBIOLOGY - GENERAL ORDERAB LES Final Result Performing Organization Address City/State/[facility] Co de Phone Number [facility] [address] [place] [address], documented in this encounter Visit Diagnoses Diagnosis Encounter for screening for COVID-19 documented in this encounter Additional Health Concerns Infection Onset Date Last Indicated Resolved Time COVID - 19 10/29/2022 01/14/2023 01/24/2023 12:1 6 AM CDT documented as of this encounter Care Teams Mortgage Coordinator Relationship Specialty Start Date End Date Dorie Thomas MD PCP - General Family Medicine 01/09/16 01/20/24 documented as of this encounter
--- OUTSIDE RECORDS SUMMARY | 2024-12-28 09:30 | XMS_ITS | Encounter Summary ---
Author Organization [facility] HealthCare Address [address] [place] [address] Phone Care Team Providers Care Multimedia Authoring Specialist Name Role Phone Dorie Thomas MD Primary Care Provider Encounter Details Date Type Department Care Team (Late st Contact Info) Description 08/14/2021 Lab Requisition [facility] Laboratory Services 1 [place] [id number] Cheko Simental MD [address] [place] [address] [facility] [address] [place] [address] Social History Tobacco Use Types [...] Associated Diagnosis Comments SARS-COV-2 BY MOLECULAR Routine 08/14/2021 8:59 AM CDT documented in this encounter Results * SARS-COV-2 BY MOLECULAR (08/14/2021 8:59 AM CDT) SARSCOV2 NOT DETECTED (Referen ce Range for this test is Not Detected ) [facility] THERMOFISHER FAST DX 08/15/2021 10:46 AM CDT [facility] Comment:This test was perfor med by a RT-PCR method. Other Non-Phlebotomy Collection / Unknown 08/14/2021 8:59 AM CDT 08/14/2021 10:29 AM CDT Narrative [facility] - 08/15/2021 10:46 AM CDT Authorized Fact Sheets about this test for providers and patients are available at: https://www.fda.gov/medical-devices/hwysppmek-synatvpuxc-laqnvsb-devices/emergen -us e-authorizations us Cheko Simental MD MICROBIOLOGY - GENERAL ORDERAB LES Final Result [facility] [address] [place] [address], documented in this encounter Visit Diagnoses Not on filedocumented in this encounter Additional Health Concerns Infection Onset Date Last Indicated Resolved Time COVID - 19 07/24/2021 09/03/2022 09/13/2022 12:1 7 AM MARBLE INSTALLATION HELPER COVID - 19 10/29/2022 01/14/2023 01/24/2023 12:1 6 AM CDT documented as of this encounter Care Teams Multimedia Authoring Specialist Relationship Specialty Start Date End Date Dorie Thomas MD PCP - General Family Medicine 01/09/16 01/20/24 documented as of this encounter
--- OUTSIDE RECORDS SUMMARY | 2024-12-28 09:30 | XMS_ITS | Encounter Summary ---
Author Organization [facility] HealthCare Address [address] [place] [address] Phone Care Team Providers Care Wood Preserving Plant Laborer Name Role Phone Dorie Thomas MD Primary Care Provider [phone] Encounter Details Date Type Department Care Team (Late st Contact Info) Description 08/13/2022 Lab Requisition [facility] Laboratory Services 1 [place] [address] Cheko Simental MD [address] [place] [address] [facility] [address] [place] [address] Encounter for screening for COVID-19 [...] Associated Diagnosis Comments SARS-COV-2 BY MOLECULAR Routine 08/13/2022 9:40 AM CDT Encounter for screening for COVID-19 documented in this encounter Results * SARS-COV-2 BY MOLECULAR (08/13/2022 9:40 AM CDT) SARSCOV2 NOT DETECTED (Referen ce Range for this test is Not Detected ) [facility] THERMOFISHER FAST DX 08/14/2022 12:18 AM CDT [facility] Comment:This test was perfor med by a RT-PCR method. Other Non-Phlebotomy Collection / Unknown 08/13/2022 9:40 AM CDT 08/13/2022 8:24 PM CDT Narrative [facility] - 08/14/2022 12:18 AM CDT Authorized Fact Sheets about this test for providers and patients are available at: https://www.fda.gov/medical-devices/vvdkhmrps-mewlxekpiu-xnoorru-devices/emergen cy-us e-authorizations us Cheko Simental MD MICROBIOLOGY - GENERAL ORDERAB LES Final Result [facility] [address] [place] [address], documented in this encounter Visit Diagnoses Diagnosis Encounter for screening for COVID-19 documented in this encounter Additional Health Concerns Infection Onset Date Last Indicated Resolved Time COVID - 19 07/24/2021 09/03/2022 09/13/2022 12:1 7 AM AVIATION METALSMITH COVID - 19 10/29/2022 01/14/2023 01/24/2023 12:1 6 AM CDT documented as of this encounter Care Teams Wood Preserving Plant Laborer Relationship Specialty Start Date End Date Dorie Thomas MD PCP - General Family Medicine 01/09/16 01/20/24 documented as of this encounter
--- OUTSIDE RECORDS SUMMARY | 2024-12-28 09:30 | XMS_ITS | Encounter Summary ---
Author Organization [facility] HealthCare Address [address] [place] [address] Phone Care Team Providers Care Block Placer Name Role Phone Dorie Thomas MD Primary Care Provider Encounter Details Date Type Department Care Team (Late st Contact Info) Description 09/04/2021 Lab Requisition [facility] Laboratory Services 1 [place] [address] Cheko Simental MD [address] [place] [address] [facility] [address] [place] [address] Encounter for screening for COVID-19 [...] Associated Diagnosis Comments SARS-COV-2 BY MOLECULAR Routine 09/04/2021 8:28 AM CDT Encounter for screening for COVID-19 documented in this encounter Results * SARS-COV-2 BY MOLECULAR (09/04/2021 8:28 AM CDT) SARSCOV2 NOT DETECTED (Referen ce Range for this test is Not Detected ) [facility] THERMOFISHER FAST DX 09/05/2021 12:01 AM CDT [facility] Comment:This test was perfor med by a RT-PCR method. Other No Phlebotomy Charged / Unknown 09/04/2021 8:28 AM CDT 09/04/2021 10:50 AM CDT Narrative [facility] - 09/05/2021 12:01 AM CDT Authorized Fact Sheets about this test for providers and patients are available at: https://www.fda.gov/medical-devices/qhgrrogic-eyzczuqqep-tfevpww-devices/emergen cy-us e-authorizations us Cheko Simental MD MICROBIOLOGY - GENERAL ORDERAB LES Final Result [facility] [address] [place] [address], documented in this encounter Visit Diagnoses Diagnosis Encounter for screening for COVID-19 documented in this encounter Additional Health Concerns Infection Onset Date Last Indicated Resolved Time COVID - 19 07/24/2021 09/03/2022 09/13/2022 12:1 7 AM SOFT METALS HAND ENGRAVER COVID - 19 10/29/2022 01/14/2023 01/24/2023 12:1 6 AM CDT documented as of this encounter Care Teams Block Placer Relationship Specialty Start Date End Date Dorie Thomas MD PCP - General Family Medicine 01/09/16 01/20/24 documented as of this encounter
--- OUTSIDE RECORDS SUMMARY | 2024-12-28 09:30 | XMS_ITS | Encounter Summary ---
Author Organization [facility] HealthCare Address [address] [place] [address] Phone Care Team Providers Care Transfer Pumper Name Role Phone Dorie Thomas MD Primary Care Provider Encounter Details Date Type Department Care Team (Late st Contact Info) Description 04/23/2022 Lab Requisition [facility] Laboratory Services 1 [place] [address] Cheko Simental MD [address] [place] [address] [facility] [address] [place] [address] Encounter for screening for COVID-19 [...] Associated Diagnosis Comments SARS-COV-2 BY MOLECULAR Routine 04/23/2022 8:31 AM CDT Encounter for screening for COVID-19 documented in this encounter Results * SARS-COV-2 BY MOLECULAR (04/23/2022 8:31 AM CDT) SARSCOV2 NOT DETECTED (Referen ce Range for this test is Not Detected ) [facility] THERMOFISHER FAST DX 04/24/2022 6:17 AM CDT [facility] Comment:This test was perfor med by a RT-PCR method. Other Non-Phlebotomy Collection / Unknown 04/23/2022 8:31 AM CDT 04/23/2022 9:36 AM CDT Narrative [facility] - 04/24/2022 6:17 AM CDT Authorized Fact Sheets about this test for providers and patients are available at: https://www.fda.gov/medical-devices/yqbzkrrbp-yzkhuxpjto-qxmocsp-devices/emergen cy-us e-authorizations us Cheko Simental MD MICROBIOLOGY - GENERAL ORDERAB LES Final Result [facility] [address] [place] [address], documented in this encounter Visit Diagnoses Diagnosis Encounter for screening for COVID-19 documented in this encounter Additional Health Concerns Infection Onset Date Last Indicated Resolved Time COVID - 19 07/24/2021 09/03/2022 09/13/2022 12:1 7 AM ACID LOADER COVID - 19 10/29/2022 01/14/2023 01/24/2023 12:1 6 AM CDT documented as of this encounter Care Teams Transfer Pumper Relationship Specialty Start Date End Date Dorie Thomas MD PCP - General Family Medicine 01/09/16 01/20/24 documented as of this encounter
--- OUTSIDE RECORDS SUMMARY | 2024-12-28 09:30 | XMS_ITS | Encounter Summary ---
Author Organization [facility] HealthCare Address [address] [place] [address] Phone Care Team Providers Care Winder Fixer Name Role Phone Dorie Thomas MD Primary Care Provider Encounter Details Date Type Department Care Team (Late st Contact Info) Description 09/18/2021 Lab Requisition [facility] Laboratory Services 1 [place] [id number] Cheko Simental MD [address] [place] [address] [facility] [address] [place] [address] Social History Tobacco Use Types [...] Associated Diagnosis Comments SARS-COV-2 BY MOLECULAR Routine 09/18/2021 8:44 AM DIRECTOR OF RECRUITMENT AND ADMISSIONS documented in this encounter Results * SARS-COV-2 BY MOLECULAR (09/18/2021 8:44 AM DIRECTOR OF RECRUITMENT AND ADMISSIONS) SARSCOV2 NOT DETECTED (Referen ce Range for this test is Not Detected ) [facility] THERMOFISHER FAST DX 09/19/2021 8:54 AM DIRECTOR OF RECRUITMENT AND ADMISSIONS [facility] Comment:This test was perfor med by a RT-PCR method. Other Non-Phlebotomy Collection / Unknown 09/18/2021 8:44 AM DIRECTOR OF RECRUITMENT AND ADMISSIONS 09/18/2021 11:15 AM DIRECTOR OF RECRUITMENT AND ADMISSIONS Narrative [facility] - 09/19/2021 8:54 AM DIRECTOR OF RECRUITMENT AND ADMISSIONS Authorized Fact Sheets about this test for providers and patients are available at: https://www.fda.gov/medical-devices/pvdeewkmh-hoyunrbjek-pqqbtxm-devices/emergen cy-us e-authorizations us Cheko Simental MD MICROBIOLOGY - GENERAL ORDERAB LES Final Result [facility] [address] [place] [address], documented in this encounter Visit Diagnoses Not on filedocumented in this encounter Additional Health Concerns Infection Onset Date Last Indicated Resolved Time COVID - 19 07/24/2021 09/03/2022 09/13/2022 12:1 7 AM DIRECTOR OF RECRUITMENT AND ADMISSIONS COVID - 19 10/29/2022 01/14/2023 01/24/2023 12:1 6 AM CDT documented as of this encounter Care Teams Winder Fixer Relationship Specialty Start Date End Date Dorie Thomas MD PCP - General Family Medicine 01/09/16 01/20/24 documented as of this encounter
--- OUTSIDE RECORDS SUMMARY | 2024-12-28 09:30 | XMS_ITS | Encounter Summary ---
Author Organization [facility] HealthCare Address [address] [place] [address] Phone Care Team Providers Care Shoe Stamper Name Role Phone Dorie Thomas MD Primary Care Provider [phone] Encounter Details Date Type Department Care Team (Late st Contact Info) Description 01/29/2022 Lab Requisition [facility] Laboratory Services 1 [place] [address] Cheko Simental MD [address] [place] [address] [facility] [address] [place] [address] Encounter for screening for COVID-19 [...] Associated Diagnosis Comments SARS-COV-2 BY MOLECULAR Routine 01/29/2022 8:38 AM CDT Encounter for screening for COVID-19 documented in this encounter Results * SARS-COV-2 BY MOLECULAR (01/29/2022 8:38 AM CDT) SARSCOV2 NOT DETECTED (Referen ce Range for this test is Not Detected ) [facility] THERMOFISHER FAST DX 01/30/2022 12:26 AM CDT [facility] Comment:This test was perfor med by a RT-PCR method. Other No Phlebotomy Charged / Unknown 01/29/2022 8:38 AM CDT 01/29/2022 11:54 AM CDT Narrative [facility] - 01/30/2022 12:26 AM CDT Authorized Fact Sheets about this test for providers and patients are available at: https://www.fda.gov/medical-devices/kueolorcf-pxcrlzwdni-neolrrj-devices/emergen cy-us e-authorizations us Cheko Simental MD MICROBIOLOGY - GENERAL ORDERAB LES Final Result [facility] [address] [place] [address], documented in this encounter Visit Diagnoses Diagnosis Encounter for screening for COVID-19 documented in this encounter Additional Health Concerns Infection Onset Date Last Indicated Resolved Time COVID - 19 07/24/2021 09/03/2022 09/13/2022 12:1 7 AM DIVISION HEAD COVID - 19 10/29/2022 01/14/2023 01/24/2023 12:1 6 AM CDT documented as of this encounter Care Teams Shoe Stamper Relationship Specialty Start Date End Date Dorie Thomas MD PCP - General Family Medicine 01/09/16 01/20/24 documented as of this encounter
--- OUTSIDE RECORDS SUMMARY | 2024-12-28 09:30 | XMS_ITS | Encounter Summary ---
Author Organization [facility] HealthCare Address [address] [place] [address] Phone Care Team Providers Care Licensed Loan Officer Name Role Phone Dorie Thomas MD Primary Care Provider [phone] Encounter Details Date Type Department Care Team (Late st Contact Info) Description 06/11/2022 Lab Requisition [facility] Laboratory Services 1 [place] [address] Cheko Simental MD [address] [place] [address] [facility] [address] [place] [address] Encounter for screening for COVID-19 [...] Associated Diagnosis Comments SARS-COV-2 BY MOLECULAR Routine 06/11/2022 8:01 AM CDT Encounter for screening for COVID-19 documented in this encounter Results * SARS-COV-2 BY MOLECULAR (06/11/2022 8:01 AM CDT) SARSCOV2 NOT DETECTED (Referen ce Range for this test is Not Detected ) [facility] THERMOFISHER FAST DX 06/12/2022 6:46 AM CDT [facility] Comment:This test was perfor med by a RT-PCR method. Other No Phlebotomy Charged / Unknown 06/11/2022 8:01 AM CDT 06/11/2022 10:51 AM CDT Narrative [facility] - 06/12/2022 6:46 AM CDT Authorized Fact Sheets about this test for providers and patients are available at: https://www.fda.gov/medical-devices/ihrcmibsh-zulihqqocq-xpdsczj-devices/emergen cy-us e-authorizations us Cheko Simental MD MICROBIOLOGY - GENERAL ORDERAB LES Final Result [facility] [address] [place] [address], documented in this encounter Visit Diagnoses Diagnosis Encounter for screening for COVID-19 documented in this encounter Additional Health Concerns Infection Onset Date Last Indicated Resolved Time COVID - 19 07/24/2021 09/03/2022 09/13/2022 12:1 7 AM SENIOR FUNCTIONAL ANALYST COVID - 19 10/29/2022 01/14/2023 01/24/2023 12:1 6 AM CDT documented as of this encounter Care Teams Licensed Loan Officer Relationship Specialty Start Date End Date Dorie Thomas MD PCP - General Family Medicine 01/09/16 01/20/24 documented as of this encounter
--- OUTSIDE RECORDS SUMMARY | 2024-12-28 09:31 | XMS_ITS | Encounter Summary ---
Author Organization [facility] HealthCare Address [address] [place] [address] Phone Care Team Providers Care Environmental Health Sanitarian Name Role Phone Dorie Thomas MD Primary Care Provider [phone] Encounter Details Date Type Department Care Team (Late st Contact Info) Description 12/18/2021 Lab Requisition [facility] Laboratory Services 1 [place] [address] Cheko Simental MD [address] [place] [address] [facility] [address] [place] [address] Encounter for screening for COVID-19 [...] Associated Diagnosis Comments SARS-COV-2 BY MOLECULAR Routine 12/18/2021 8:04 AM INTERNET APPLICATION DEVELOPER Encounter for screening for COVID-19 documented in this encounter Results * SARS-COV-2 BY MOLECULAR (12/18/2021 8:04 AM INTERNET APPLICATION DEVELOPER) SARSCOV2 NOT DETECTED (Referen ce Range for this test is Not Detected ) [facility] THERMOFISHER FAST DX 12/19/2021 12:35 AM INTERNET APPLICATION DEVELOPER [facility] Comment:This test was perfor med by a RT-PCR method. Other Non-Phlebotomy Collection / Unknown 12/18/2021 8:04 AM INTERNET APPLICATION DEVELOPER 12/18/2021 10:57 AM INTERNET APPLICATION DEVELOPER Narrative [facility] - 12/19/2021 12:35 AM INTERNET APPLICATION DEVELOPER Authorized Fact Sheets about this test for providers and patients are available at: https://www.fda.gov/medical-devices/lychbdjmb-iucwmezivb-htjdwpk-devices/emergen cy-us e-authorizations us Cheko Simental MD MICROBIOLOGY - GENERAL ORDERAB LES Final Result [facility] [address] [place] [address], documented in this encounter Visit Diagnoses Diagnosis Encounter for screening for COVID-19 documented in this encounter Additional Health Concerns Infection Onset Date Last Indicated Resolved Time COVID - 19 07/24/2021 09/03/2022 09/13/2022 12:1 7 AM INTERNET APPLICATION DEVELOPER COVID - 19 10/29/2022 01/14/2023 01/24/2023 12:1 6 AM CDT documented as of this encounter Care Teams Environmental Health Sanitarian Relationship Specialty Start Date End Date Dorie Thomas MD PCP - General Family Medicine 01/09/16 01/20/24 documented as of this encounter
--- OUTSIDE RECORDS SUMMARY | 2024-12-28 09:31 | XMS_ITS | Encounter Summary ---
Author Organization [facility] HealthCare Address [address] [place] [address] Phone Care Team Providers Care Dinkey Driver Name Role Phone Dorie Thomas MD Primary Care Provider Encounter Details Date Type Department Care Team (Late st Contact Info) Description 11/20/2021 Lab Requisition [facility] Laboratory Services 1 [place] [address] Cheko Simental MD [address] [place] [address] [facility] [address] [place] [address] Encounter for screening for COVID-19 [...] Associated Diagnosis Comments SARS-COV-2 BY MOLECULAR Routine 11/20/2021 7:03 AM REFRIGERATION OPERATOR Encounter for screening for COVID-19 documented in this encounter Results * SARS-COV-2 BY MOLECULAR (11/20/2021 7:03 AM REFRIGERATION OPERATOR) SARSCOV2 NOT DETECTED (Referen ce Range for this test is Not Detected ) [facility] THERMOFISHER FAST DX 11/22/2021 9:46 AM REFRIGERATION OPERATOR [facility] Comment:This test was perfor med by a RT-PCR method. Other Non-Phlebotomy Collection / Unknown 11/20/2021 7:03 AM REFRIGERATION OPERATOR 11/20/2021 2:04 PM REFRIGERATION OPERATOR Narrative [facility] - 11/22/2021 9:46 AM REFRIGERATION OPERATOR Authorized Fact Sheets about this test for providers and patients are available at: https://www.fda.gov/medical-devices/qoklrtxqk-rktcyyjxmt-ienpkhe-devices/emergen cy-us e-authorizations us Cheko Simental MD MICROBIOLOGY - GENERAL ORDERAB LES Final Result [facility] [address] [place] [address], documented in this encounter Visit Diagnoses Diagnosis Encounter for screening for COVID-19 documented in this encounter Additional Health Concerns Infection Onset Date Last Indicated Resolved Time COVID - 19 07/24/2021 09/03/2022 09/13/2022 12:1 7 AM REFRIGERATION OPERATOR COVID - 19 10/29/2022 01/14/2023 01/24/2023 12:1 6 AM CDT documented as of this encounter Care Teams Dinkey Driver Relationship Specialty Start Date End Date Dorie Thomas MD PCP - General Family Medicine 01/09/16 01/20/24 documented as of this encounter
--- OUTSIDE RECORDS SUMMARY | 2024-12-28 09:31 | XMS_ITS | Encounter Summary ---
Author Organization [facility] HealthCare Address [address] [place] [address] Phone Care Team Providers Care Food Safety Coordinator Name Role Phone Dorie Thomas MD Primary Care Provider [phone] Encounter Details Date Type Department Care Team (Late st Contact Info) Description 12/25/2021 Lab Requisition [facility] Laboratory Services 1 [place] [address] Cheko Simental MD [address] [place] [address] [facility] [address] [place] [address] Encounter for screening for [...] Associated Diagnosis Comments SARS-COV-2 BY MOLECULAR Routine 12/25/2021 8:21 AM CARAMEL MAKER Encounter for screening for COVID-19 documented in this encounter Results * SARS-COV-2 BY MOLECULAR (12/25/2021 8:21 AM CARAMEL MAKER) SARSCOV2 NOT DETECTED (Referen ce Range for this test is Not Detected ) [facility] THERMOFISHER FAST DX 12/26/2021 9:36 AM CARAMEL MAKER [facility] Comment:This test was perfor med by a RT-PCR method. Other Non-Phlebotomy Collection / Unknown 12/25/2021 8:21 AM CARAMEL MAKER 12/25/2021 11:55 AM CARAMEL MAKER Narrative [facility] - 12/26/2021 9:36 AM CARAMEL MAKER Authorized Fact Sheets about this test for providers and patients are available at: https://www.fda.gov/medical-devices/esafgsiuh-qeefkepbwu-ouounzi-devices/emergen cy-us e-authorizations us Cheko Simental MD MICROBIOLOGY - GENERAL ORDERAB LES Final Result [facility] [address] [place] [address], documented in this encounter Visit Diagnoses Diagnosis Encounter for screening for COVID-19 documented in this encounter Additional Health Concerns Infection Onset Date Last Indicated Resolved Time COVID - 19 07/24/2021 09/03/2022 09/13/2022 12:1 7 AM CARAMEL MAKER COVID - 19 10/29/2022 01/14/2023 01/24/2023 12:1 6 AM CDT documented as of this encounter Care Teams Food Safety Coordinator Relationship Specialty Start Date End Date Dorie Thomas MD PCP - General Family Medicine 01/09/16 01/20/24 documented as of this encounter
--- OUTSIDE RECORDS SUMMARY | 2024-12-28 09:31 | XMS_ITS | Encounter Summary ---
Author Organization [facility] HealthCare Address [address] [place] [address] Phone Care Team Providers Care Specialty Development Consultant Name Role Phone Dorie Thomas MD Primary Care Provider Encounter Details Date Type Department Care Team (Late st Contact Info) Description 02/26/2022 Lab Requisition [facility] Laboratory Services [address] [place] [address] Cheko Simental MD [address] [place] [address] [facility] [address] [place] [address] Encounter for screening for COVID-19 [...] Associated Diagnosis Comments SARS-COV-2 BY MOLECULAR Routine 02/26/2022 9:39 AM CDT Encounter for screening for COVID-19 documented in this encounter Results * SARS-COV-2 BY MOLECULAR (02/26/2022 9:39 AM CDT) SARSCOV2 NOT DETECTED (Referen ce Range for this test is Not Detected ) [facility] THERMOFISHER FAST DX 02/27/2022 11:37 AM CDT [facility] Comment:This test was perfor med by a RT-PCR method. Other Non-Phlebotomy Collection / Unknown 02/26/2022 9:39 AM CDT 02/26/2022 3:04 PM CDT Narrative [facility] - 02/27/2022 11:37 AM CDT Authorized Fact Sheets about this test for providers and patients are available at: https://www.fda.gov/medical-devices/rpsydcdov-yinmuzbpfa-eewxcqj-devices/emergen cy-us e-authorizations us Cheko Simental MD MICROBIOLOGY - GENERAL ORDERAB LES Final Result [facility] [address] [place] [address], documented in this encounter Visit Diagnoses Diagnosis Encounter for screening for COVID-19 documented in this encounter Additional Health Concerns Infection Onset Date Last Indicated Resolved Time COVID - 19 07/24/2021 09/03/2022 09/13/2022 12:1 7 AM OIL AND GAS DRAFTER COVID - 19 10/29/2022 01/14/2023 01/24/2023 12:1 6 AM CDT documented as of this encounter Care Teams Specialty Development Consultant Relationship Specialty Start Date End Date Dorie Thomas MD PCP - General Family Medicine 01/09/16 01/20/24 documented as of this encounter
--- OUTSIDE RECORDS SUMMARY | 2024-12-28 09:31 | XMS_ITS | Encounter Summary ---
Author Organization [facility] HealthCare Address [address] [place] [address] Phone Care Team Providers Care Electricity Trader Name Role Phone Dorie Thomas MD Primary Care Provider Encounter Details Date Type Department Care Team (Late st Contact Info) Description 10/30/2021 Lab Requisition [facility] Laboratory Services 1 [place] [address] Cheko Simental MD [address] [place] [address] [facility] [address] [place], [place] [id number] Encounter for screening for COVID-19 Social History [...] Associated Diagnosis Comments SARS-COV-2 BY MOLECULAR Routine 10/30/2021 8:42 AM DRY KILN LOADER Encounter for screening for COVID-19 documented in this encounter Results * SARS-COV-2 BY MOLECULAR (10/30/2021 8:42 AM DRY KILN LOADER) SARSCOV2 NOT DETECTED (Referen ce Range for this test is Not Detected ) [facility] THERMOFISHER FAST DX 11/02/2021 11:18 AM DRY KILN LOADER [facility] Comment:This test was perfor med by a RT-PCR method. Other No Phlebotomy Charged / Unknown 10/30/2021 8:42 AM DRY KILN LOADER 10/30/2021 12:26 PM DRY KILN LOADER Narrative [facility] - 11/02/2021 11:18 AM DRY KILN LOADER Authorized Fact Sheets about this test for providers and patients are available at: https://www.fda.gov/medical-devices/mbvvxmgvi-xifocklsln-xwfagpd-devices/emergen cy-us e-authorizations us Cheko Simental MD MICROBIOLOGY - GENERAL ORDERAB LES Final Result Performing Organization Address City/State/[facility] Co de Phone Number [facility] [address] [place] [address], documented in this encounter Visit Diagnoses Diagnosis Encounter for screening for COVID-19 documented in this encounter Additional Health Concerns Infection Onset Date Last Indicated Resolved Time COVID - 19 07/24/2021 09/03/2022 09/13/2022 12:1 7 AM DRY KILN LOADER COVID - 19 10/29/2022 01/14/2023 01/24/2023 12:1 6 AM CDT documented as of this encounter Care Teams Electricity Trader Relationship Specialty Start Date End Date Dorie Thomas MD PCP - General Family Medicine 01/09/16 01/20/24 documented as of this encounter
--- OUTSIDE RECORDS SUMMARY | 2024-12-28 09:31 | XMS_ITS | Encounter Summary ---
Author Organization [facility] HealthCare Address [address] [place] [address] Phone Care Team Providers Care Crime Laboratory Analyst Name Role Phone Dorie Thomas MD Primary Care Provider [phone] Encounter Details Date Type Department Care Team (Late st Contact Info) Description 12/11/2021 Lab Requisition [facility] Laboratory Services [address] [place] [address] Cheko Simental MD [address] [place] [address] [facility] [address] [place] [address] Encounter for screening for COVID-19 [...] Associated Diagnosis Comments SARS-COV-2 BY MOLECULAR Routine 12/11/2021 8:06 AM BLANCHING MACHINE OPERATOR Encounter for screening for COVID-19 documented in this encounter Results * SARS-COV-2 BY MOLECULAR (12/11/2021 8:06 AM BLANCHING MACHINE OPERATOR) SARSCOV2 NOT DETECTED (Referen ce Range for this test is Not Detected ) [facility] THERMOFISHER FAST DX 12/11/2021 11:49 PM BLANCHING MACHINE OPERATOR [facility] Comment:This test was perfor med by a RT-PCR method. Other Non-Phlebotomy Collection / Unknown 12/11/2021 8:06 AM BLANCHING MACHINE OPERATOR 12/11/2021 12:18 PM BLANCHING MACHINE OPERATOR Narrative [facility] - 12/11/2021 11:49 PM BLANCHING MACHINE OPERATOR Authorized Fact Sheets about this test for providers and patients are available at: https://www.fda.gov/medical-devices/kwvtpnlvc-xbhesvxwjp-geblvjo-devices/emergen cy-us e-authorizations us Cheko Simental MD MICROBIOLOGY - GENERAL ORDERAB LES Final Result [facility] [address] [place] [address], documented in this encounter Visit Diagnoses Diagnosis Encounter for screening for COVID-19 documented in this encounter Additional Health Concerns Infection Onset Date Last Indicated Resolved Time COVID - 19 07/24/2021 09/03/2022 09/13/2022 12:1 7 AM BLANCHING MACHINE OPERATOR COVID - 19 10/29/2022 01/14/2023 01/24/2023 12:1 6 AM CDT documented as of this encounter Care Teams Crime Laboratory Analyst Relationship Specialty Start Date End Date Dorie Thomas MD PCP - General Family Medicine 01/09/16 01/20/24 documented as of this encounter
--- OUTSIDE RECORDS SUMMARY | 2024-12-28 09:31 | XMS_ITS | Encounter Summary ---
Author Organization [facility] HealthCare Address [address] [place] [address] Phone Care Team Providers Care Maintainer Sewer And Waterworks Name Role Phone Dorie Thomas MD Primary Care Provider Encounter Details Date Type Department Care Team (Late st Contact Info) Description 01/07/2023 Lab Requisition [facility] Laboratory Services 1 [place] [address] Cheko Simental MD [address] [place] [address] [facility] [address] [place] [address] Encounter for screening for COVID-19 [...] Associated Diagnosis Comments SARS-COV-2 BY MOLECULAR Routine 01/07/2023 8:20 AM SKIING TEACHER Encounter for screening for COVID-19 documented in this encounter Results * SARS-COV-2 BY MOLECULAR (01/07/2023 8:20 AM SKIING TEACHER) SARSCOV2 NOT DETECTED (Referen ce Range for this test is Not Detected ) [facility] THERMOFISHER FAST DX 01/07/2023 7:37 PM SKIING TEACHER [facility] Comment:This test was perfor med by a RT-PCR method. Other No Phlebotomy Charged / Unknown 01/07/2023 8:20 AM SKIING TEACHER 01/07/2023 9:53 AM SKIING TEACHER Narrative [facility] - 01/07/2023 7:37 PM SKIING TEACHER Authorized Fact Sheets about this test for providers and patients are available at: https://www.fda.gov/medical-devices/bwpecqaki-mhasedsmvo-fwyzfel-devices/emergen cy-us e-authorizations us Cheko Simental MD MICROBIOLOGY - GENERAL ORDERAB LES Final Result Performing Organization Address City/State/[facility] Co de Phone Number [facility] [address] [place] [address], documented in this encounter Visit Diagnoses Diagnosis Encounter for screening for COVID-19 documented in this encounter Additional Health Concerns Infection Onset Date Last Indicated Resolved Time COVID - 19 10/29/2022 01/14/2023 01/24/2023 12:1 6 AM CDT documented as of this encounter Care Teams Maintainer Sewer And Waterworks Relationship Specialty Start Date End Date Dorie Thomas MD PCP - General Family Medicine 01/09/16 01/20/24 documented as of this encounter
--- OUTSIDE RECORDS SUMMARY | 2024-12-28 09:31 | XMS_ITS | Encounter Summary ---
Author Organization [facility] HealthCare Address [address] [place] [address] Phone Care Team Providers Care Systems Programmer Name Role Phone Dorie Thomas MD Primary Care Provider Encounter Details Date Type Department Care Team (Late st Contact Info) Description 11/06/2021 Lab Requisition [facility] Laboratory Services 1 [place] [address] Cheko Simental MD [address] [place] [address] [facility] [address] [place] [address] Social History Tobacco Use Types [...] Associated Diagnosis Comments SARS-COV-2 BY MOLECULAR Routine 11/06/2021 8:55 AM COMMISSARY HELPER documented in this encounter Results * SARS-COV-2 BY MOLECULAR (11/06/2021 8:55 AM COMMISSARY HELPER) SARSCOV2 NOT DETECTED (Referen ce Range for this test is Not Detected ) [facility] THERMOFISHER FAST DX 11/08/2021 7:20 PM COMMISSARY HELPER [facility] Comment:This test was perfor med by a RT-PCR method. Other Non-Phlebotomy Collection / Unknown 11/06/2021 8:55 AM COMMISSARY HELPER 11/06/2021 12:09 PM COMMISSARY HELPER Narrative [facility] - 11/08/2021 7:20 PM COMMISSARY HELPER Authorized Fact Sheets about this test for providers and patients are available at: https://www.fda.gov/medical-devices/bmvkktlyc-nkhcdegdse-gyvxulc-devices/emergen cy-us e-authorizations us Cheko Simental MD MICROBIOLOGY - GENERAL ORDERAB LES Final Result [facility] [address] [place] [address], documented in this encounter Visit Diagnoses Not on filedocumented in this encounter Additional Health Concerns Infection Onset Date Last Indicated Resolved Time COVID - 19 07/24/2021 09/03/2022 09/13/2022 12:1 7 AM COMMISSARY HELPER COVID - 19 10/29/2022 01/14/2023 01/24/2023 12:1 6 AM CDT documented as of this encounter Care Teams Systems Programmer Relationship Specialty Start Date End Date Dorie Thomas MD PCP - General Family Medicine 01/09/16 01/20/24 documented as of this encounter
--- OUTSIDE RECORDS SUMMARY | 2024-12-28 09:31 | XMS_ITS | Encounter Summary ---
Author Organization [facility] HealthCare Address [address] [place] [address] Phone Care Team Providers Care Systems Integration Engineer Name Role Phone Dorie Thomas MD Primary Care Provider [phone] Encounter Details Date Type Department Care Team (Late st Contact Info) Description 10/23/2021 Lab Requisition [facility] Laboratory Services 1 [place] [address] Cheko Simental MD [address] [place] [address] [facility] [address] [place] [address] Encounter for screening for COVID-19 [...] Associated Diagnosis Comments SARS-COV-2 BY MOLECULAR Routine 10/23/2021 8:31 AM RIVET SORTER Encounter for screening for COVID-19 documented in this encounter Results * SARS-COV-2 BY MOLECULAR (10/23/2021 8:31 AM RIVET SORTER) SARSCOV2 NOT DETECTED (Referen ce Range for this test is Not Detected ) [facility] THERMOFISHER FAST DX 10/26/2021 12:37 AM RIVET SORTER [facility] Comment:This test was perfor med by a RT-PCR method. Other Non-Phlebotomy Collection / Unknown 10/23/2021 8:31 AM RIVET SORTER 10/23/2021 11:03 AM RIVET SORTER Narrative [facility] - 10/26/2021 12:37 AM RIVET SORTER Authorized Fact Sheets about this test for providers and patients are available at: https://www.fda.gov/medical-devices/aqqlyamon-iwuhufdhhe-bjsvwce-devices/emergen cy-us e-authorizations us Cheko Simental MD MICROBIOLOGY - GENERAL ORDERAB LES Final Result [facility] [address] [place] [address], documented in this encounter Visit Diagnoses Diagnosis Encounter for screening for COVID-19 documented in this encounter Additional Health Concerns Infection Onset Date Last Indicated Resolved Time COVID - 19 07/24/2021 09/03/2022 09/13/2022 12:1 7 AM RIVET SORTER COVID - 19 10/29/2022 01/14/2023 01/24/2023 12:1 6 AM CDT documented as of this encounter Care Teams Systems Integration Engineer Relationship Specialty Start Date End Date Dorie Thomas MD PCP - General Family Medicine 01/09/16 01/20/24 documented as of this encounter
--- OUTSIDE RECORDS SUMMARY | 2024-12-28 09:31 | XMS_ITS | Encounter Summary ---
Author Organization [facility] HealthCare Address [address] [place] [address] Phone Care Team Providers Care It Support Analyst Name Role Phone Dorie Thomas MD Primary Care Provider Encounter Details Date Type Department Care Team (Late st Contact Info) Description 03/05/2022 Lab Requisition [facility] Laboratory Services 1 [place] [address] Cheko Simental MD [address] [place] [address] [facility] [address] [place] [address] Encounter for screening for COVID-19 [...] Associated Diagnosis Comments SARS-COV-2 BY MOLECULAR Routine 03/05/2022 8:55 AM CDT Encounter for screening for COVID-19 documented in this encounter Results * SARS-COV-2 BY MOLECULAR (03/05/2022 8:55 AM CDT) SARSCOV2 NOT DETECTED (Referen ce Range for this test is Not Detected ) [facility] THERMOFISHER FAST DX 03/05/2022 11:40 PM CDT [facility] Comment:This test was perfor med by a RT-PCR method. Other Non-Phlebotomy Collection / Unknown 03/05/2022 8:55 AM CDT 03/05/2022 11:31 AM CDT Narrative [facility] - 03/05/2022 11:40 PM CDT Authorized Fact Sheets about this test for providers and patients are available at: https://www.fda.gov/medical-devices/tyoamigqz-yonwqzehiu-sobeelb-devices/emergen cy-us e-authorizations us Cheko Simental MD MICROBIOLOGY - GENERAL ORDERAB LES Final Result [facility] [address] [place] [address], documented in this encounter Visit Diagnoses Diagnosis Encounter for screening for COVID-19 documented in this encounter Additional Health Concerns Infection Onset Date Last Indicated Resolved Time COVID - 19 07/24/2021 09/03/2022 09/13/2022 12:1 7 AM FAMILY PRACTICE MD COVID - 19 10/29/2022 01/14/2023 01/24/2023 12:1 6 AM CDT documented as of this encounter Care Teams It Support Analyst Relationship Specialty Start Date End Date Dorie Thomas MD PCP - General Family Medicine 01/09/16 01/20/24 documented as of this encounter
--- OUTSIDE RECORDS SUMMARY | 2024-12-28 09:31 | XMS_ITS | Clinical Summary ---
Author Organization [facility] Address [address], [address] [address] Phone Care Team Providers Care Chair Pad Maker Name Role Phone Unavailable Primary Care Provider Unavailabl e Allergies No known active allergies Medications fluticasone (FLONASE) 50 MCG/ACT Suspension 2 Sprays by Nasal route daily. Use in each nostril as directed. 1 Bottle 9 Active docusate sodium (COLACE) 100 MG Capsule Take 200 mg by mouth every morning. Active montelukast (SINGULAIR) 10 MG Tablet Take 10 mg by mouth every morning. Active albuterol (PROVENTIL, VENTOLIN) (2.5 MG/3ML) 0.083% Nebulizer Soln 2.5 mg by Nebulization route 2 times daily. Active ipratropium (ATROVENT) 0.02 % Solution 0.5 mg by Nebulization route 2 times daily. Active albuterol (PROAIR HFA) 108 (90 Base) MCG/ACT Aerosol Solution take 2 Puffs by inhalation every 4 hours as needed. Active Norgestimate-Et hinyl Estradiol 0.18/0.215/0.25 MG-35 MCG Tablet Take 1 Tab by mouth daily. Active azelastine (OPTIVAR) 0.05 % Solution Place 1 Drop in affected eye(s) 2 times daily as needed. Active Active Problems Problem Noted Date Diagnosed Date Chronic midline low back pain without sciatica 0 06/05/2021 Seasonal allergies 08/03/2019 Dry eye syndrome 08/03/2019 Constipation 03/30/2019 Mild intellectual disability 03/30/2019 Bilateral hearing loss 03/30/2019 Bronchial asthma 03/30/2019 Immunizations Immunization Administration Dates Next Due Influenza Vaccine greater than 3 yrs 08/15/2017, 08/13/2016 Influenza Vaccine, Quadrivalent, PF 09/03/2020 Pneumococcal Vaccine - 13 Valent 10/27/2018 Pneumococcal Vaccine Adult - 23 Valent 1 TDAP Vaccine 12/17/2010 Social History Tobacco Use Types Packs/Day Years Used Date Smoking Tobacco: Never Smokeless Tobacco: Never Comments No Sex and Gender Information Value Date Recorded Sex Assigned at Not on file Legal Sex Female 7:58 PM CDT Gender Identity Not on file Sexual Orientation Not on file Last Filed Vital Signs Vital Sign Reading Time Taken Comments Blood Pressure 108/73 06/05/2021 11:20 AM CDT Pulse 121 06/05/2021 11:20 AM CDT Temperature 36.7 C (98 F) 06/05/2021 11:20 AM CDT Respiratory Rate 18 06/05/2021 11:20 AM CDT Oxygen Saturation 99% 06/05/2021 11:20 AM CDT Inhaled Oxygen Concentration - - Weight - - Height - - Body Mass Index - - Plan of Treatment Health Maintenance Due Date Last Done Comments Hepatitis C Virus (HCV) Screening 1989 Hepatitis B Immunization (1 of 3 - 19+ 3-dose series) 2008 Pap Smear 2010 Cervical Cancer Screening (CCS) 2019 HPV/Cotest 2019 Influenza Immunization (#1) 07/03/202412/2019, 08/15/2017, 08/13/2016 SARS-COV-2 Immunization (3 - season) 2024 02/28/2021, 01/29/2021 Pneumococcal Immunization Combined (3 of 3 - PCV20 or PCV21) 2039 10/27/2018, 01/14/2011 Respiratory Syncytial Virus (RSV) Immunization (Adult) (1 - 1-dose 75+ series) 2064 DTaP/Tdap/Td Immunization Discontinued 12/17/2010 Meningococcal Immunization (ACWY) Aged Out No longer eligible based on patient's age to complete this topic Rotavirus Immunization Aged Out No lo nger eligible based on patient's age to complete this topic Insurance MEDICARE [place]ICAID [place]
--- OUTSIDE RECORDS SUMMARY | 2024-12-28 09:31 | XMS_ITS | Encounter Summary ---
Author Organization [facility] HealthCare Address [address] [place] [address] Phone Care Team Providers Care Cement Gun Operator Name Role Phone Dorie Thomas MD Primary Care Provider Encounter Details Date Type Department Care Team (Late st Contact Info) Description 01/14/2023 Lab Requisition [facility] Laboratory Services 1 [place] [address] Cheko Simental MD [address] [place] [address] [facility] [address] [place] [address] Encounter for screening for COVID-19 [...] Associated Diagnosis Comments SARS-COV-2 BY MOLECULAR Routine 01/14/2023 8:23 AM CDT Encounter for screening for COVID-19 documented in this encounter Results * SARS-COV-2 BY MOLECULAR (01/14/2023 8:23 AM CDT) SARSCOV2 NOT DETECTED (Referen ce Range for this test is Not Detected ) [facility] THERMOFISHER FAST DX 01/14/2023 5:01 PM CDT [facility] Comment:This test was perfor med by a RT-PCR method. Other COVID 19 Home Health/ [facility] Facility Collection / Unknown 01/14/2023 8:23 AM CDT 01/14/2023 9:14 AM CDT Narrative [facility] - 01/14/2023 5:01 PM CDT Authorized Fact Sheets about this test for providers and patients are available at: https://www.fda.gov/medical-devices/kwgqecfpu-kgiazrszvu-jogntav-devices/emergen cy-us e-authorizations us Cheko Simental MD MICROBIOLOGY - GENERAL ORDERAB LES Final Result Performing Organization Address City/State/[facility] Co de Phone Number [facility] [address] [place] [address], documented in this encounter Visit Diagnoses Diagnosis Encounter for screening for COVID-19 documented in this encounter Additional Health Concerns Infection Onset Date Last Indicated Resolved Time COVID - 19 10/29/2022 01/14/2023 01/24/2023 12:1 6 AM CDT documented as of this encounter Care Teams Cement Gun Operator Relationship Specialty Start Date End Date Dorie Thomas MD PCP - General Family Medicine 01/09/16 01/20/24 documented as of this encounter
--- OUTSIDE RECORDS SUMMARY | 2024-12-28 09:31 | XMS_ITS | Encounter Summary ---
Author Organization [facility] HealthCare Address [address] [place] [address] Phone Care Team Providers Care Roof Fitter Name Role Phone Dorie Thomas MD Primary Care Provider Encounter Details Date Type Department Care Team (Late st Contact Info) Description 01/22/2022 Lab Requisition [facility] Laboratory Services 1 [place] [address] Cheko Simental MD [address] [place] [address] [facility] [address] [place] [address] Encounter for screening for [...] Associated Diagnosis Comments SARS-COV-2 BY MOLECULAR Routine 01/22/2022 8:04 AM CDT Encounter for screening for COVID-19 documented in this encounter Results * SARS-COV-2 BY MOLECULAR (01/22/2022 8:04 AM CDT) SARSCOV2 NOT DETECTED (Referen ce Range for this test is Not Detected ) [facility] THERMOFISHER FAST DX 01/23/2022 12:07 AM CDT [facility] Comment:This test was perfor med by a RT-PCR method. Other Non-Phlebotomy Collection / Unknown 01/22/2022 8:04 AM CDT 01/22/2022 12:18 PM CDT Narrative [facility] - 01/23/2022 12:07 AM CDT Authorized Fact Sheets about this test for providers and patients are available at: https://www.fda.gov/medical-devices/vognuoxiu-uzynfgimph-tkryqpz-devices/emergen cy-us e-authorizations us Cheko Simental MD MICROBIOLOGY - GENERAL ORDERAB LES Final Result [facility] [address] [place] [address], documented in this encounter Visit Diagnoses Diagnosis Encounter for screening for COVID-19 documented in this encounter Additional Health Concerns Infection Onset Date Last Indicated Resolved Time COVID - 19 07/24/2021 09/03/2022 09/13/2022 12:1 7 AM COLLECTIONS SPECIALIST COVID - 19 10/29/2022 01/14/2023 01/24/2023 12:1 6 AM CDT documented as of this encounter Care Teams Roof Fitter Relationship Specialty Start Date End Date Dorie Thomas MD PCP - General Family Medicine 01/09/16 01/20/24 documented as of this encounter
--- OUTSIDE RECORDS SUMMARY | 2024-12-28 09:31 | XMS_ITS | Encounter Summary ---
Author Organization [facility] Address [address] [place] [address] Phone Care Team Providers Care Dietary Service Aide Name Role Phone Dorie Thomas MD Primary Care Provider [phone] Encounter Details Date Type Department Care Team (Late st Contact Info) Description 01/01/2022 Lab Requisition [facility] Laboratory Services 1 [place] [address] Cheko Simental MD [address] [place] [address] [facility] [address] [place] [address] Encounter for screening for COVID-19 [...] Associated Diagnosis Comments SARS-COV-2 BY MOLECULAR Routine 01/01/2022 8:17 AM COLLECTIONS REP Encounter for screening for COVID-19 documented in this encounter Results * SARS-COV-2 BY MOLECULAR (01/01/2022 8:17 AM COLLECTIONS REP) SARSCOV2 NOT DETECTED (Referen ce Range for this test is Not Detected ) [facility] THERMOFISHER FAST DX 01/02/2022 8:48 AM COLLECTIONS REP [facility] Comment:This test was perfor med by a RT-PCR method. Other Non-Phlebotomy Collection / Unknown 01/01/2022 8:17 AM COLLECTIONS REP 01/01/2022 11:30 AM COLLECTIONS REP Narrative [facility] - 01/02/2022 8:48 AM COLLECTIONS REP Authorized Fact Sheets about this test for providers and patients are available at: https://www.fda.gov/medical-devices/qgpybfdbc-cbxskzremq-xhjdivv-devices/emergen cy-us e-authorizations us Cheko Simental MD MICROBIOLOGY - GENERAL ORDERAB LES Final Result [facility] [address] [place] [address], documented in this encounter Visit Diagnoses Diagnosis Encounter for screening for COVID-19 documented in this encounter Additional Health Concerns Infection Onset Date Last Indicated Resolved Time COVID - 19 07/24/2021 09/03/2022 09/13/2022 12:1 7 AM COLLECTIONS REP COVID - 19 10/29/2022 01/14/2023 01/24/2023 12:1 6 AM CDT documented as of this encounter Care Teams Dietary Service Aide Relationship Specialty Start Date End Date Dorie Thomas MD PCP - General Family Medicine 01/09/16 01/20/24 documented as of this encounter
--- OUTSIDE RECORDS SUMMARY | 2024-12-28 09:31 | XMS_ITS | Encounter Summary ---
Author Organization [facility] HealthCare Address [address] [place] [address] Phone Care Team Providers Care Roller Die Cutting Machine Operator Name Role Phone Dorie Thomas MD Primary Care Provider [phone] Encounter Details Date Type Department Care Team (Late st Contact Info) Description 08/07/2021 Lab Requisition [facility] Laboratory Services 1 [place] [address] Cheko Simental MD [address] [place] [address] [facility] [address] [place] [address] Encounter for screening for COVID-19 [...] Associated Diagnosis Comments SARS-COV-2 BY MOLECULAR Routine 08/07/2021 7:32 AM CDT Encounter for screening for COVID-19 documented in this encounter Results * SARS-COV-2 BY MOLECULAR (08/07/2021 7:32 AM CDT) SARSCOV2 NOT DETECTED (Referen ce Range for this test is Not Detected ) [facility] THERMOFISHER FAST DX 08/08/2021 11:08 AM CDT [facility] Comment:This test was perfor med by a RT-PCR method. Other No Phlebotomy Charged / Unknown 08/07/2021 7:32 AM CDT 08/07/2021 10:37 AM CDT Narrative [facility] - 08/08/2021 11:08 AM CDT Authorized Fact Sheets about this test for providers and patients are available at: https://www.fda.gov/medical-devices/lbizcbybr-xuozpezggq-upifgoi-devices/emergen cy-us e-authorizations us Cheko Simental MD MICROBIOLOGY - GENERAL ORDERAB LES Final Result [facility] [address] [place] [address], documented in this encounter Visit Diagnoses Diagnosis Encounter for screening for COVID-19 documented in this encounter Additional Health Concerns Infection Onset Date Last Indicated Resolved Time COVID - 19 07/24/2021 09/03/2022 09/13/2022 12:1 7 AM SURGICAL GARMENT INSPECTOR COVID - 19 10/29/2022 01/14/2023 01/24/2023 12:1 6 AM CDT documented as of this encounter Care Teams Roller Die Cutting Machine Operator Relationship Specialty Start Date End Date Dorie Thomas MD PCP - General Family Medicine 01/09/16 01/20/24 documented as of this encounter
--- OUTSIDE RECORDS SUMMARY | 2024-12-28 09:31 | XMS_ITS | Encounter Summary ---
Author Organization [facility] HealthCare Address [address] [place] [address] Phone Care Team Providers Care Mechanical Design Engineer Facilities Name Role Phone Dorie Thomas MD Primary Care Provider Encounter Details Date Type Department Care Team (Late st Contact Info) Description 02/19/2022 Lab Requisition [facility] Laboratory Services 1 [place] [address] Cheko Simental MD [address] [place] [address] [facility] [address] [place] [address] Encounter for screening for COVID-19 [...] Associated Diagnosis Comments SARS-COV-2 BY MOLECULAR Routine 02/19/2022 9:06 AM CDT Encounter for screening for COVID-19 documented in this encounter Results * SARS-COV-2 BY MOLECULAR (02/19/2022 9:06 AM CDT) SARSCOV2 NOT DETECTED (Referen ce Range for this test is Not Detected ) [facility] THERMOFISHER FAST DX 02/20/2022 12:20 AM CDT [facility] Comment:This test was perfor med by a RT-PCR method. Other Non-Phlebotomy Collection / Unknown 02/19/2022 9:06 AM CDT 02/19/2022 1:42 PM CDT Narrative [facility] - 02/20/2022 12:20 AM CDT Authorized Fact Sheets about this test for providers and patients are available at: https://www.fda.gov/medical-devices/dmdnqulqv-dzjvraclnt-blaqahh-devices/emergen cy-us e-authorizations us Cheko Simental MD MICROBIOLOGY - GENERAL ORDERAB LES Final Result [facility] [address] [place] [address], documented in this encounter Visit Diagnoses Diagnosis Encounter for screening for COVID-19 documented in this encounter Additional Health Concerns Infection Onset Date Last Indicated Resolved Time COVID - 19 07/24/2021 09/03/2022 09/13/2022 12:1 7 AM AUTO DEALERSHIP PORTER COVID - 19 10/29/2022 01/14/2023 01/24/2023 12:1 6 AM CDT documented as of this encounter Care Teams Mechanical Design Engineer Facilities Relationship Specialty Start Date End Date Dorie Thomas MD PCP - General Family Medicine 01/09/16 01/20/24 documented as of this encounter
--- OUTSIDE RECORDS SUMMARY | 2024-12-28 09:31 | XMS_ITS | Encounter Summary ---
Author Organization [facility] HealthCare Address [address] [place] [address] Phone Care Team Providers Care County Sheriff Name Role Phone Dorie Thomas MD Primary Care Provider Encounter Details Date Type Department Care Team (Late st Contact Info) Description 11/13/2021 Lab Requisition [facility] Laboratory Services 1 [place] [address] Cheko Simental MD [address] [place] [address] [facility] [address] [place] [address] Encounter for screening for COVID-19 [...] Associated Diagnosis Comments SARS-COV-2 BY MOLECULAR Routine 11/13/2021 8:54 AM BATTERY TESTER FIELD Encounter for screening for COVID-19 documented in this encounter Results * SARS-COV-2 BY MOLECULAR (11/13/2021 8:54 AM BATTERY TESTER FIELD) SARSCOV2 NOT DETECTED (Referen ce Range for this test is Not Detected ) [facility] THERMOFISHER FAST DX 11/15/2021 6:13 AM BATTERY TESTER FIELD [facility] Comment:This test was perfor med by a RT-PCR method. Other Non-Phlebotomy Collection / Unknown 11/13/2021 8:54 AM BATTERY TESTER FIELD 11/13/2021 11:47 AM BATTERY TESTER FIELD Narrative [facility] - 11/15/2021 6:13 AM BATTERY TESTER FIELD Authorized Fact Sheets about this test for providers and patients are available at: https://www.fda.gov/medical-devices/lfmkvniop-lodiefwpyz-tvcffrw-devices/emergen cy-us e-authorizations us Cheko Simental MD MICROBIOLOGY - GENERAL ORDERAB LES Final Result Performing Organization Address City/State/[facility] Co de Phone Number [facility] [address] [place] [address], documented in this encounter Visit Diagnoses Diagnosis Encounter for screening for COVID-19 documented in this encounter Additional Health Concerns Infection Onset Date Last Indicated Resolved Time COVID - 19 07/24/2021 09/03/2022 09/13/2022 12:1 7 AM BATTERY TESTER FIELD COVID - 19 10/29/2022 01/14/2023 01/24/2023 12:1 6 AM CDT documented as of this encounter Care Teams County Sheriff Relationship Specialty Start Date End Date Dorie Thomas MD PCP - General Family Medicine 01/09/16 01/20/24 documented as of this encounter
--- OUTSIDE RECORDS SUMMARY | 2024-12-28 09:31 | XMS_ITS | Encounter Summary ---
Author Organization [facility] HealthCare Address [address] [place] [address] Phone Care Team Providers Care Production Sound Mixer Name Role Phone Dorie Thomas MD Primary Care Provider Encounter Details Date Type Department Care Team (Late st Contact Info) Description 12/31/2022 Lab Requisition [facility] Laboratory Services 1 [place] [address] Cheko Simental MD [address] [place] [address] [facility] [address] [place] [address] Encounter for screening for COVID-19 [...] Associated Diagnosis Comments SARS-COV-2 BY MOLECULAR Routine 12/31/2022 8:33 AM SENIOR GAMEMASTER Encounter for screening for COVID-19 documented in this encounter Results * SARS-COV-2 BY MOLECULAR (12/31/2022 8:33 AM SENIOR GAMEMASTER) SARSCOV2 NOT DETECTED (Referen ce Range for this test is Not Detected ) [facility] THERMOFISHER FAST DX 01/01/2023 8:01 AM SENIOR GAMEMASTER [facility] Comment:This test was perfor med by a RT-PCR method. Other Non-Phlebotomy Collection / Unknown 12/31/2022 8:33 AM SENIOR GAMEMASTER 12/31/2022 10:13 AM SENIOR GAMEMASTER Narrative [facility] - 01/01/2023 8:01 AM SENIOR GAMEMASTER Authorized Fact Sheets about this test for providers and patients are available at: https://www.fda.gov/medical-devices/ocmeanhxp-zudndsmrzq-yrwkgnd-devices/emergen cy-us e-authorizations us Cheko Simental MD MICROBIOLOGY - GENERAL ORDERAB LES Final Result [facility] [address] [place] [address], documented in this encounter Visit Diagnoses Diagnosis Encounter for screening for COVID-19 documented in this encounter Additional Health Concerns Infection Onset Date Last Indicated Resolved Time COVID - 19 10/29/2022 01/14/2023 01/24/2023 12:1 6 AM CDT documented as of this encounter Care Teams Production Sound Mixer Relationship Specialty Start Date End Date Dorie Thomas MD PCP - General Family Medicine 01/09/16 01/20/24 documented as of this encounter
--- OUTSIDE RECORDS SUMMARY | 2024-12-28 09:31 | XMS_ITS | Encounter Summary ---
Author Organization [facility] HealthCare Address [address] [place] [address] Phone Care Team Providers Care Computer Tester Name Role Phone Dorie Thomas MD Primary Care Provider Encounter Details Date Type Department Care Team (Late st Contact Info) Description 02/12/2022 Lab Requisition [facility] Laboratory Services 1 [place] [address] Cheko Simental MD [address] [place] [address] [facility] [address] [place] [address] Encounter for screening for COVID-19 [...] Associated Diagnosis Comments SARS-COV-2 BY MOLECULAR Routine 02/12/2022 9:10 AM CDT Encounter for screening for COVID-19 documented in this encounter Results * SARS-COV-2 BY MOLECULAR (02/12/2022 9:10 AM CDT) SARSCOV2 NOT DETECTED (Referen ce Range for this test is Not Detected ) [facility] THERMOFISHER FAST DX 02/13/2022 6:24 AM CDT [facility] Comment:This test was perfor med by a RT-PCR method. Other No Phlebotomy Charged / Unknown 02/12/2022 9:10 AM CDT 02/12/2022 12:45 PM CDT Narrative [facility] - 02/13/2022 6:24 AM CDT Authorized Fact Sheets about this test for providers and patients are available at: https://www.fda.gov/medical-devices/mthmqvyuf-bhthpibkxo-vnpeifk-devices/emergen cy-us e-authorizations us Cheko Simental MD MICROBIOLOGY - GENERAL ORDERAB LES Final Result [facility] [address] [place] [address], documented in this encounter Visit Diagnoses Diagnosis Encounter for screening for COVID-19 documented in this encounter Additional Health Concerns Infection Onset Date Last Indicated Resolved Time COVID - 19 07/24/2021 09/03/2022 09/13/2022 12:1 7 AM SUPERVISOR ASSEMBLY STOCK COVID - 19 10/29/2022 01/14/2023 01/24/2023 12:1 6 AM CDT documented as of this encounter Care Teams Computer Tester Relationship Specialty Start Date End Date Dorie Thomas MD PCP - General Family Medicine 01/09/16 01/20/24 documented as of this encounter
--- OUTSIDE RECORDS SUMMARY | 2024-12-28 09:31 | XMS_ITS | Encounter Summary ---
Author Organization [facility] Address [address] [place] [address] Phone Care Team Providers Care Pre Algebra Teacher Name Role Phone Dorie Thomas MD Primary Care Provider [phone] Encounter Details Date Type Department Care Team (Late st Contact Info) Description 01/08/2022 Lab Requisition [facility] Laboratory Services 1 [place] [address] Cheko Simental MD [address] [place] [address] [facility] [address] [place] [address] Encounter for screening for COVID-19 [...] Associated Diagnosis Comments SARS-COV-2 BY MOLECULAR Routine 01/08/2022 8:05 AM PAINTING TECHNICIAN Encounter for screening for COVID-19 documented in this encounter Results * SARS-COV-2 BY MOLECULAR (01/08/2022 8:05 AM PAINTING TECHNICIAN) SARSCOV2 NOT DETECTED (Referen ce Range for this test is Not Detected ) [facility] THERMOFISHER FAST DX 01/09/2022 10:22 AM PAINTING TECHNICIAN [facility] Comment:This test was perfor med by a RT-PCR method. Other Non-Phlebotomy Collection / Unknown 01/08/2022 8:05 AM PAINTING TECHNICIAN 01/08/2022 10:41 AM PAINTING TECHNICIAN Narrative [facility] - 01/09/2022 10:22 AM PAINTING TECHNICIAN Authorized Fact Sheets about this test for providers and patients are available at: https://www.fda.gov/medical-devices/maxfcgkbc-tpnwcscexy-lwtpnyz-devices/emergen cy-us e-authorizations us Cheko Simental MD MICROBIOLOGY - GENERAL ORDERAB LES Final Result [facility] [address] [place] [address], documented in this encounter Visit Diagnoses Diagnosis Encounter for screening for COVID-19 documented in this encounter Additional Health Concerns Infection Onset Date Last Indicated Resolved Time COVID - 19 07/24/2021 09/03/2022 09/13/2022 12:1 7 AM PAINTING TECHNICIAN COVID - 19 10/29/2022 01/14/2023 01/24/2023 12:1 6 AM CDT documented as of this encounter Care Teams Pre Algebra Teacher Relationship Specialty Start Date End Date Dorie Thomas MD PCP - General Family Medicine 01/09/16 01/20/24 documented as of this encounter
--- OUTSIDE RECORDS SUMMARY | 2024-12-28 09:31 | XMS_ITS | Encounter Summary ---
Author Organization [facility] HealthCare Address [address] [place] [address] Phone Care Team Providers Care Industrial Green Systems Designer Name Role Phone Dorie Thomas MD Primary Care Provider Encounter Details Date Type Department Care Team (Late st Contact Info) Description 07/24/2021 Lab Requisition [facility] Laboratory Services 1 [place] [id number] Cheko Simental MD [address] [place] [address] [facility] [address] [place] [address] Social History Tobacco Use Types [...] Associated Diagnosis Comments SARS-COV-2 BY MOLECULAR Routine 07/24/2021 7:08 AM CDT documented in this encounter Results * SARS-COV-2 BY MOLECULAR (07/24/2021 7:08 AM CDT) SARSCOV2 NOT DETECTED (Referen ce Range for this test is Not Detected ) [facility] THERMOFISHER FAST DX 07/25/2021 8:26 AM CDT [facility] Comment:This test was perfor med by a RT-PCR method. Other Non-Phlebotomy Collection / Unknown 07/24/2021 7:08 AM CDT 07/24/2021 11:17 AM CDT Narrative [facility] - 07/25/2021 8:26 AM CDT Authorized Fact Sheets about this test for providers and patients are available at: https://www.fda.gov/medical-devices/twcrxjznt-ywwqdwefqb-bvdhzwh-devices/emergen -us e-authorizations us Cheko Simental MD MICROBIOLOGY - GENERAL ORDERAB LES Final Result [facility] [address] [place] [id number], documented in this encounter Visit Diagnoses Not on filedocumented in this encounter Additional Health Concerns Infection Onset Date Last Indicated Resolved Time COVID - 19 07/24/2021 09/03/2022 09/13/2022 12:1 7 AM CREDIT ASSESSMENT ANALYST COVID - 19 10/29/2022 01/14/2023 01/24/2023 12:1 6 AM CDT documented as of this encounter Care Teams Industrial Green Systems Designer Relationship Specialty Start Date End Date Dorie Thomas MD PCP - General Family Medicine 01/09/16 01/20/24 documented as of this encounter
--- OUTSIDE RECORDS SUMMARY | 2024-12-28 09:31 | XMS_ITS | Encounter Summary ---
Author Organization [facility] HealthCare Address [address] [place] [address] Phone Care Team Providers Care Manager Quality Compliance Name Role Phone Dorie Thomas MD Primary Care Provider [phone] Encounter Details Date Type Department Care Team (Late st Contact Info) Description 01/15/2022 Lab Requisition [facility] Laboratory Services 1 [place] [address] Cheko Simental MD [address] [place] [address] [facility] [address] [place] [address] Encounter for screening for COVID-19 [...] Associated Diagnosis Comments SARS-COV-2 BY MOLECULAR Routine 01/15/2022 8:24 AM CDT Encounter for screening for COVID-19 documented in this encounter Results * SARS-COV-2 BY MOLECULAR (01/15/2022 8:24 AM CDT) SARSCOV2 NOT DETECTED (Referen ce Range for this test is Not Detected ) [facility] THERMOFISHER FAST DX 01/15/2022 11:53 PM CDT [facility] Comment:This test was perfor med by a RT-PCR method. Other Non-Phlebotomy Collection / Unknown 01/15/2022 8:24 AM CDT 01/15/2022 1:02 PM CDT Narrative [facility] - 01/15/2022 11:53 PM CDT Authorized Fact Sheets about this test for providers and patients are available at: https://www.fda.gov/medical-devices/xjefmrums-axtzikpivp-yjpafxj-devices/emergen cy-us e-authorizations us Cheko Simental MD MICROBIOLOGY - GENERAL ORDERAB LES Final Result [facility] [address] [place] [address], documented in this encounter Visit Diagnoses Diagnosis Encounter for screening for COVID-19 documented in this encounter Additional Health Concerns Infection Onset Date Last Indicated Resolved Time COVID - 19 07/24/2021 09/03/2022 09/13/2022 12:1 7 AM CHUCKER COVID - 19 10/29/2022 01/14/2023 01/24/2023 12:1 6 AM CDT documented as of this encounter Care Teams Manager Quality Compliance Relationship Specialty Start Date End Date Dorie Thomas MD PCP - General Family Medicine 01/09/16 01/20/24 documented as of this encounter
--- OUTSIDE RECORDS SUMMARY | 2024-12-28 09:31 | XMS_ITS | Encounter Summary ---
Author Organization [facility] Address [address] [place] [address] Phone Care Team Providers Care Blender Operator Name Role Phone Dorie Thomas MD Primary Care Provider Encounter Details Date Type Department Care Team (Late st Contact Info) Description 03/19/2022 Lab Requisition [facility] Laboratory Services [address] [place] [address] Cheko Simental MD [address] [place] [address] [facility] [address] [place] [address] Encounter for screening for COVID-19 [...] Associated Diagnosis Comments SARS-COV-2 BY MOLECULAR Routine 03/19/2022 9:35 AM CDT Encounter for screening for COVID-19 documented in this encounter Results * SARS-COV-2 BY MOLECULAR (03/19/2022 9:35 AM CDT) SARSCOV2 NOT DETECTED (Referen ce Range for this test is Not Detected ) [facility] THERMOFISHER FAST DX 03/20/2022 6:54 AM CDT [facility] Comment:This test was perfor med by a RT-PCR method. Other Non-Phlebotomy Collection / Unknown 03/19/2022 9:35 AM CDT 03/19/2022 10:51 AM CDT Narrative [facility] - 03/20/2022 6:54 AM CDT Authorized Fact Sheets about this test for providers and patients are available at: https://www.fda.gov/medical-devices/rfueleaib-wwhlfwfhxv-eduzkio-devices/emergen cy-us e-authorizations us Cheko Simental MD MICROBIOLOGY - GENERAL ORDERAB LES Final Result [facility] [address] [place] [id number], documented in this encounter Visit Diagnoses Diagnosis Encounter for screening for COVID-19 documented in this encounter Additional Health Concerns Infection Onset Date Last Indicated Resolved Time COVID - 19 07/24/2021 09/03/2022 09/13/2022 12:1 7 AM MEDICAL IMAGING TECHNOLOGIST COVID - 19 10/29/2022 01/14/2023 01/24/2023 12:1 6 AM CDT documented as of this encounter Care Teams Blender Operator Relationship Specialty Start Date End Date Dorie Thomas MD PCP - General Family Medicine 01/09/16 01/20/24 documented as of this encounter
--- OUTSIDE RECORDS SUMMARY | 2024-12-28 09:31 | XMS_ITS | Encounter Summary ---
Author Organization [facility] Address [address] [place] [address] Phone Care Team Providers Care Business Development Associate Name Role Phone Dorie Thomas MD Primary Care Provider Encounter Details Date Type Department Care Team (Late st Contact Info) Description 10/02/2021 Lab Requisition [facility] Laboratory Services [address] [place] [address] Cheko Simental MD [address] [place] [address] [facility] [address] [place], [place] [id number] Encounter for screening for COVID-19 Social History [...] Associated Diagnosis Comments SARS-COV-2 BY MOLECULAR Routine 10/02/2021 8:24 AM [facility]DR[facility] Encounter for screening for COVID-19 documented in this encounter Results * SARS-COV-2 BY MOLECULAR (10/02/2021 8:24 AM [facility]) SARSCOV2 NOT DETECTED (Referen ce Range for this test is Not Detected ) [facility] THERMOFISHER FAST DX 10/03/2021 1:28 PM [facility] Comment:This test was perfor med by a RT-PCR method. Other No Phlebotomy Charged / Unknown 10/02/2021 8:24 AM [facility] 10/02/2021 10:30 AM [facility] Narrative [facility] - 10/03/2021 1:28 PM [facility] Authorized Fact Sheets about this test for providers and patients are available at: https://www.fda.gov/medical-devices/vuyhojoba-tmcklxelvg-onbdjaq-devices/emergen cy-us e-authorizations us Cheko Simental MD MICROBIOLOGY - GENERAL ORDERAB LES Final Result Performing Organization Address City/State/[facility] Co de Phone Number [facility] [address] [place] [address], documented in this encounter Visit Diagnoses Diagnosis Encounter for screening for COVID-19 documented in this encounter Additional Health Concerns Infection Onset Date Last Indicated Resolved Time COVID - 19 07/24/2021 09/03/2022 09/13/2022 12:1 7 AM [facility] COVID - 19 10/29/2022 01/14/2023 01/24/2023 12:1 6 AM CDT documented as of this encounter Care Teams Business Development Associate Relationship Specialty Start Date End Date Dorie Thomas MD PCP - General Family Medicine 01/09/16 01/20/24 documented as of this encounter
--- OUTSIDE RECORDS SUMMARY | 2024-12-28 09:31 | XMS_ITS | Encounter Summary ---
Author Organization [facility] Address [address] [place] [address] Phone Care Team Providers Care Director Financial Planning Name Role Phone Dorie Thomas MD Primary Care Provider Encounter Details Date Type Department Care Team (Late st Contact Info) Description 10/16/2021 Lab Requisition [facility] Laboratory Services [address] [place] [address] Cheko Simental MD [address] [place] [address] [facility] [address] [place] [address] Encounter for screening for COVID-19 [...] Associated Diagnosis Comments SARS-COV-2 BY MOLECULAR Routine 10/16/2021 8:56 AM WILDLIFE ENFORCEMENT MAJOR Encounter for screening for COVID-19 documented in this encounter Results * SARS-COV-2 BY MOLECULAR (10/16/2021 8:56 AM WILDLIFE ENFORCEMENT MAJOR) SARSCOV2 NOT DETECTED (Referen ce Range for this test is Not Detected ) [facility] THERMOFISHER FAST DX 10/18/2021 8:04 AM WILDLIFE ENFORCEMENT MAJOR [facility] Comment:This test was perfor med by a RT-PCR method. Other No Phlebotomy Charged / Unknown 10/16/2021 8:56 AM WILDLIFE ENFORCEMENT MAJOR 10/16/2021 11:09 AM WILDLIFE ENFORCEMENT MAJOR Narrative [facility] - 10/18/2021 8:04 AM WILDLIFE ENFORCEMENT MAJOR Authorized Fact Sheets about this test for providers and patients are available at: https://www.fda.gov/medical-devices/hhodzemiu-bkkmtxtpde-seoocws-devices/emergen cy-us e-authorizations us Cheko Simental MD MICROBIOLOGY - GENERAL ORDERAB LES Final Result Performing Organization Address City/State/[facility] Co de Phone Number [facility] [address] [place] [address], documented in this encounter Visit Diagnoses Diagnosis Encounter for screening for COVID-19 documented in this encounter Additional Health Concerns Infection Onset Date Last Indicated Resolved Time COVID - 19 07/24/2021 09/03/2022 09/13/2022 12:1 7 AM WILDLIFE ENFORCEMENT MAJOR COVID - 19 10/29/2022 01/14/2023 01/24/2023 12:1 6 AM CDT documented as of this encounter Care Teams Director Financial Planning Relationship Specialty Start Date End Date Dorie Thomas MD PCP - General Family Medicine 01/09/16 01/20/24 documented as of this encounter
--- OUTSIDE RECORDS SUMMARY | 2024-12-28 09:31 | XMS_ITS | Encounter Summary ---
Author Organization [facility] Address [address] [place] [address] Phone Care Team Providers Care Wind Projects Supervisor Name Role Phone Dorie Thomas MD Primary Care Provider Encounter Details Date Type Department Care Team (Late st Contact Info) Description 03/12/[address] [facility] Laboratory Services 1 [place] [address] Cheko Simental MD [address] [place] [address] [facility] [address] [place] [address] Encounter for screening for COVID-19 [...] Associated Diagnosis Comments SARS-COV-2 BY MOLECULAR Routine 03/12/2022 9:22 AM CDT Encounter for screening for COVID-19 documented in this encounter Results * SARS-COV-2 BY MOLECULAR (03/12/2022 9:22 AM CDT) SARSCOV2 NOT DETECTED (Referen ce Range for this test is Not Detected ) [facility] THERMOFISHER FAST DX 03/13/2022 10:12 AM CDT [facility] Comment:This test was perfor med by a RT-PCR method. Other Non-Phlebotomy Collection / Unknown 03/12/2022 9:22 AM CDT 03/12/2022 11:57 AM CDT Narrative [facility] - 03/13/2022 10:12 AM CDT Authorized Fact Sheets about this test for providers and patients are available at: https://www.fda.gov/medical-devices/jwlqkfnxc-uookgplqfr-xltjrid-devices/emergen cy-us e-authorizations us Cheko Simental MD MICROBIOLOGY - GENERAL ORDERAB LES Final Result [facility] [address] [place] [address], documented in this encounter Visit Diagnoses Diagnosis Encounter for screening for COVID-19 documented in this encounter Additional Health Concerns Infection Onset Date Last Indicated Resolved Time COVID - 19 07/24/2021 09/03/2022 09/13/2022 12:1 7 AM CLAIMS SORTER COVID - 19 10/29/2022 01/14/2023 01/24/2023 12:1 6 AM CDT documented as of this encounter Care Teams Wind Projects Supervisor Relationship Specialty Start Date End Date Dorie Thomas MD PCP - General Family Medicine 01/09/16 01/20/24 documented as of this encounter
--- OUTSIDE RECORDS SUMMARY | 2024-12-28 09:31 | XMS_ITS | Encounter Summary ---
Author Organization [facility] Address [address] [place] [address] Phone Care Team Providers Care Director Retirement Name Role Phone Dorie Thomas MD Primary Care Provider Encounter Details Date Type Department Care Team (Late st Contact Info) Description 10/09/2021 Lab Requisition [facility] Laboratory Services 1 [place] [address] Cheko Simental MD [address] [place] [address] [facility] [address] [place] [address] Encounter for screening for COVID-19 [...] Associated Diagnosis Comments SARS-COV-2 BY MOLECULAR Routine 10/09/2021 8:45 AM FISHER TRAMMEL NET Encounter for screening for COVID-19 documented in this encounter Results * SARS-COV-2 BY MOLECULAR (10/09/2021 8:45 AM FISHER TRAMMEL NET) SARSCOV2 NOT DETECTED (Referen ce Range for this test is Not Detected ) [facility] THERMOFISHER FAST DX 10/10/2021 5:59 PM FISHER TRAMMEL NET [facility] Comment:This test was perfor med by a RT-PCR method. Other No Phlebotomy Charged / Unknown 10/09/2021 8:45 AM FISHER TRAMMEL NET 10/09/2021 11:29 AM FISHER TRAMMEL NET Narrative [facility] - 10/10/2021 5:59 PM FISHER TRAMMEL NET Authorized Fact Sheets about this test for providers and patients are available at: https://www.fda.gov/medical-devices/rochmdzkk-dvjaqvkikd-yhvkjdt-devices/emergen cy-us e-authorizations us Cheko Simental MD MICROBIOLOGY - GENERAL ORDERAB LES Final Result Performing Organization Address City/State/[facility] Co de Phone Number [facility] [address] [place] [address], documented in this encounter Visit Diagnoses Diagnosis Encounter for screening for COVID-19 documented in this encounter Additional Health Concerns Infection Onset Date Last Indicated Resolved Time COVID - 19 07/24/2021 09/03/2022 09/13/2022 12:1 7 AM FISHER TRAMMEL NET COVID - 19 10/29/2022 01/14/2023 01/24/2023 12:1 6 AM CDT documented as of this encounter Care Teams Director Retirement Relationship Specialty Start Date End Date Dorie Thomas MD PCP - General Family Medicine 01/09/16 01/20/24 documented as of this encounter
--- OUTSIDE RECORDS SUMMARY | 2024-12-28 09:31 | XMS_ITS | Encounter Summary ---
Author Organization [facility] Address [address] [place] [address] Phone Care Team Providers Care Iv Rn Name Role Phone Dorie Thomas MD Primary Care Provider Encounter Details Date Type Department Care Team (Late st Contact Info) Description 11/27/2021 Lab Requisition [facility] Laboratory Services 1 [place] [address] Cheko Simental MD [address] [place] [address] [facility] [address] [place] [address] Encounter for screening for COVID-19 [...] Associated Diagnosis Comments SARS-COV-2 BY MOLECULAR Routine 11/27/2021 8:10 AM FINISHED HARDWARE ERECTOR Encounter for screening for COVID-19 documented in this encounter Results * SARS-COV-2 BY MOLECULAR (11/27/2021 8:10 AM FINISHED HARDWARE ERECTOR) SARSCOV2 NOT DETECTED (Referen ce Range for this test is Not Detected ) [facility] THERMOFISHER FAST DX 11/28/2021 11:10 AM FINISHED HARDWARE ERECTOR [facility] Comment:This test was perfor med by a RT-PCR method. Other Non-Phlebotomy Collection / Unknown 11/27/2021 8:10 AM FINISHED HARDWARE ERECTOR 11/27/2021 12:03 PM FINISHED HARDWARE ERECTOR Narrative [facility] - 11/28/2021 11:10 AM FINISHED HARDWARE ERECTOR Authorized Fact Sheets about this test for providers and patients are available at: https://www.fda.gov/medical-devices/kynozoxuq-ngddrxrjuw-cicuzsa-devices/emergen cy-us e-authorizations us Cheko Simental MD MICROBIOLOGY - GENERAL ORDERAB LES Final Result [facility] [address] [place] [address], documented in this encounter Visit Diagnoses Diagnosis Encounter for screening for COVID-19 documented in this encounter Additional Health Concerns Infection Onset Date Last Indicated Resolved Time COVID - 19 07/24/2021 09/03/2022 09/13/2022 12:1 7 AM FINISHED HARDWARE ERECTOR COVID - 19 10/29/2022 01/14/2023 01/24/2023 12:1 6 AM CDT documented as of this encounter Care Teams Iv Rn Relationship Specialty Start Date End Date Dorie Thomas MD PCP - General Family Medicine 01/09/16 01/20/24 documented as of this encounter
== END 2024-12-28 08:56 | disposition home or self-care (01) ==
LOC: ANHBWCAUD 08:55
PROVIDERS: PCP Family Medicine; Visit Provider Family Medicine
DX: H90.3 Sensorineural hearing loss, bilateral (principal); H91.3 Deaf nonspeaking, not elsewhere classified
CPT/HCPCS: 92557; 92567